=== PATIENT | female | born 1950 | race Caucasian/White ===

== ENCOUNTER 2018-09-29 14:56 | Emergency (ER) | payer MEDICAID ==
[~2018-09-29] VITALS: Ht 160 cm; Wt 68.7 kg
[~2018-09-29 14:56] MED LIST: ACET-8386 PO; ENAL10TA8 PO; LEVO250T71 PO; OMEPRAZOLE CAP 40MG
[2018-09-29 15:06] VITALS: BP 144/70
--- NOTE | 2018-09-29 15:10 | NUR ---
Patient to bed 2. RN evaluating patient at bedside.
[2018-09-29] MEDS ORDERED: ATEN25TA7 PO (15:12)
[2018-09-29] MEDS ORDERED: PHEN-1749 PO (15:13)
--- NOTE | 2018-09-29 15:20 | NUR ---
BIB FAMILY C/O PAINFUL URINATION, BLADDER PAIN, AND URINARY DRIBBLING X 2 DAYS. TAKING PHENAZOPYRIDINE WITNOUT RELIEF, LAST DOSE 1300. DENIES FEVER/CHILLS. DENIES ABDOMINAL PAIN/BACK PAIN. HX: RIGHT KIDNEY REMOVAL SURGERY 05/26/18, HIGH CHOLESTEROL, HTN RX: PHENAZOPYRIDINE, ATENOLOL, OMEPRAZOLE, ENALAPRIL PATIENT STATES PAIN OF 8/10 AT THIS TIME; PATIENT POSITIONED FOR COMFORT; HOB ELEVATED; BEDRAILS UP X1; BED DOWN. ER MD MADE AWARE OF PT STATUS.
[2018-09-29] MEDS ORDERED: cefTRIAXone 1,000 MG in LIDOCAINE MPF 1% - 5 mL VIAL 2.1 ML IM ONE (15:45)
[2018-09-29 15:48] LABS: APPEARANCE,URINE HAZY (CLEAR); BILIRUBIN,URINE NEGATIVE (NEGATIVE); BLOOD, URINE 1+ (NEGATIVE); COLOR,URINE ORANGE (YELLOW); LEUKOCYTE ESTERASE ,URINE 3+ (NEGATIVE); NITRITE, URINE POSITIVE (NEGATIVE); PH,URINE 5.5 (5.0-9.0); UGLUCOSE TRACE (NEGATIVE)
[2018-09-29 16:03] VITALS: BP 132/71
[2018-09-29 16:23] LABS: WBC,URINE >25 (MANY) /HPF (0-5)
== END 2018-09-29 16:02 | disposition home or self-care (01) ==
LOC: MED 14:56
DX: N39.0 Urinary tract infection, site not specified (principal); I10 Essential (primary) hypertension; Z85.41 Personal history of malignant neoplasm of cervix uteri; Z98.890 Other specified postprocedural states; Z79.899 Other long term (current) drug therapy
CPT/HCPCS: 81001; 87086; 87186; 96372; 99283; J0696; J2001

== ENCOUNTER 2018-10-09 16:23 | Emergency (ER) | payer MEDICARE, MEDICAID ==
[~2018-10-09] VITALS: Ht 160 cm; Wt 68.0 kg
[~2018-10-09 16:23] MED LIST changes: -ACET-8386 PO; +ATEN25TA7 PO; -LEVO250T71 PO; +PHEN-1749 PO
[2018-10-09 16:32] VITALS: BP 167/88
--- NOTE | 2018-10-09 16:36 | NUR ---
PT WHEELCHAIRED TO LOBBY. VSS. AA0X4
[2018-10-09 22:42] LABS: APPEARANCE,URINE CLEAR (CLEAR); BILIRUBIN,URINE NEGATIVE (NEGATIVE); BLOOD, URINE NEGATIVE (NEGATIVE); COLOR,URINE YELLOW (YELLOW); LEUKOCYTE ESTERASE ,URINE NEGATIVE (NEGATIVE); NITRITE, URINE NEGATIVE (NEGATIVE); UGLUCOSE NEGATIVE (NEGATIVE)
--- NOTE | 2018-10-09 22:49 | NUR ---
PT WHEEL CHAIR ASSISTED TO BED 7.
--- NOTE | 2018-10-09 22:50 | NUR ---
67 Y FEMALE, BIB TO ED C/O LEFT LOWER BACK PAIN RADIATING TO L LOWER LEG X5 DAYS PAIN 10 AT THIS TIME. PT UNABLE TO BEAR WEIGHT ON LEFT FOOT DUE TO PAIN, ASSISTED TO BED VIA WHEELCHAIR, PT SEEN LAST FRIDAY FOR UTI AND WAS GIVEN CEPHALEXIN. PT AAOX4, GCS 15, RR EVEN UNLABORED, ED MD DR. FERREIRA MADE AWARE, WILL CONTINUE TO MONITOR CLOSELY. PMH- HTN
[2018-10-09] MEDS ORDERED: oxyCODONE/APAP 5/325 MG 1 TAB TAB PO ONE (23:30)
[2018-10-10 00:19] LABS: BASOPHILS % (AUTO) 0.3 % (0.0-2.0); EOSINOPHILS # (AUTO) 0.1 K/uL (0-0.4); EOSINOPHILS % (AUTO) 0.8 % (0.0-4.0); HEMATOCRIT 36.2 % (36-48); LYMPHOCYTES # (AUTO) 2.5 K/uL (2.5-16.5); LYMPHOCYTES % (AUTO) 35.4 % (20.5-51.1); MEAN CORPUSCULAR HEMOGLOBIN 30 pg (27-31); MEAN CORPUSCULAR HGB CONC 33 g/dL (33-37); MEAN CORPUSCULAR VOLUME 89.8 fL (80-94); MONOCYTES # (AUTO) 0.4 K/uL (0.8-1.0); MONOCYTES % (AUTO) 5.8 % (1.7-9.3); NEUTROPHILS # (AUTO) 4.1 K/uL (1.8-7.7); NEUTROPHILS % (AUTO) 57.7 % (42.2-75.2); PLATELET COUNT (AUTO) 228 K/uL (140-450); RED BLOOD CELL COUNT(AUTO) 4.03 MIL/uL (4.20-5.40); RED CELL DISTRIBUTION WIDTH 16.2 % (11.6-13.7); WHITE BLOOD COUNT (AUTO) 7.2 K/uL (4.8-10.8)
[2018-10-10 00:49] LABS: ALBUMIN 4.1 g/dL (3.4-5.0); ANION GAP 13.7 (8-16); CARBON DIOXIDE 25.3 mmol/L (21-32); CREATININE 1.5 mg/dL (0.6-1.3); TOTAL BILIRUBIN 0.5 mg/dL (0.0-1.0)
[2018-10-10 01:26] VITALS: BP 154/78
--- NOTE | 2018-10-10 01:26 | NUR ---
Patient discharged with v/s stable. Written and verbal after care instructions given and explained. Patient alert, oriented and verbalized understanding of instructions. Wheel Chair Assisted with to car. All questions addressed prior to discharge. ID band removed. Patient advised to follow up with PMD. Rx of PERCOCET 5MG/325MG AND ZOFRAN ODT 4MG given. Patient educated on indication of medication including possible reaction and side effects. Opportunity to ask questions provided and answered.
== END 2018-10-10 01:26 | disposition home or self-care (01) ==
LOC: MED 16:23
DX: M54.5 Low back pain (principal); I10 Essential (primary) hypertension; Z90.49 Acquired absence of other specified parts of digestive tract; Z79.899 Other long term (current) drug therapy; Z85.41 Personal history of malignant neoplasm of cervix uteri
CPT/HCPCS: 36415; 80053; 81003; 85025; 99284

== ENCOUNTER 2018-10-12 16:05 | Emergency (ER) | payer MEDICARE, MEDICAID ==
[~2018-10-12] VITALS: Ht 160 cm; Wt 68.0 kg
--- NOTE | 2018-10-12 16:09 | NUR ---
Patient transferred to bed 2 via wheelchair by tech. RN evaluating patient at bedside.
[2018-10-12 16:15] VITALS: BP 162/95
[2018-10-12] MEDS ORDERED: CEPH250C16 PO (16:18)
[2018-10-12] MEDS ORDERED: [UNRECOGNIZED DRUG - CODE] PO (16:18)
[2018-10-12] MEDS ORDERED: OMEP20TC10 PO (16:18)
--- NOTE | 2018-10-12 16:20 | NUR ---
BIB BOYFRIEND. AAO X4 C/O LEFT LEG PAIN RADIATING DOWN TO LEFT CALF, PT STATES SHE WAS SEEN TWO DAYS AGO FOR SAME PAIN AND WAS GIVEN RX OF PERCOCET AND STATES SHE TOOK HER LAST PILL PRIOR TO ARRIVAL X 1 HR AGO. PT DENIES TRAUMA/INJURY TO SITE. PT REFUSED TO BE TRANSFERRED FROM WHEEL CHAIR TO BED DUE TO PAIN. ER TO EVALUATE PT.
--- NOTE | 2018-10-12 16:23 | NUR ---
DR CHAN AT BEDSIDE FOR PT EVALUATION
[2018-10-12] MEDS ORDERED: KETOROLAC 30 MG/ML VIAL IM ONE (16:50)
[2018-10-12] MEDS ORDERED: MORPHINE SULFATE 4 MG/ML SYR IM ONE (16:50)
--- NOTE | 2018-10-12 17:15 | NUR ---
PT AAO X4. CONVERSATING APPROPRIATELY WITH SIGNIFICANT OTHER. EVEN AND UNLABORED BREATHING. PT IS SITTING ON THE WHEEL CHAIR. PT PLACED ON FULL LIGHTING DESIGNER. WILL CONTINUE TO MONITOR.
[2018-10-12 17:25] VITALS: BP 115/65
--- NOTE | 2018-10-12 17:25 | NUR ---
Patient discharged with v/s stable. Written and verbal after care instructions given and explained. Patient alert, oriented and verbalized understanding of instructions. Wheel Chair Assisted with by boyfriend. All questions addressed prior to discharge. ID band removed. Patient advised to follow up with PMD. Rx of PERCOCET 5MG-325 MG, LIDODERM 5% TRANSDERMAL PATCH, NAPROSYN given. Patient educated on indication of medication including possible reaction and side effects. Opportunity to ask questions provided and answered.
== END 2018-10-12 16:09 | disposition home or self-care (01) ==
LOC: MED 16:05
DX: M54.42 Lumbago with sciatica, left side (principal); I10 Essential (primary) hypertension; Z98.890 Other specified postprocedural states; Z79.899 Other long term (current) drug therapy
CPT/HCPCS: 96372; 99283; J1885; J2270

== ENCOUNTER 2018-10-19 20:45 | Emergency (ER) | payer MEDICARE, MEDICAID ==
[~2018-10-19] VITALS: Ht 160 cm; Wt 68.0 kg
[~2018-10-19 20:45] MED LIST changes: +CEPH250C16 PO; +OMEP20TC10 PO; -OMEPRAZOLE CAP 40MG; -PHEN-1749 PO; +[UNRECOGNIZED DRUG - CODE] PO
[2018-10-19 20:49] VITALS: BP 179/90
[2018-10-19] MEDS ORDERED: MORPHINE SULFATE 2 MG/ML SYR IM ONE (21:45)
[2018-10-19 22:10] VITALS: BP 179/90
== END 2018-10-19 22:08 | disposition home or self-care (01) ==
LOC: MED 20:45
DX: M54.40 Lumbago with sciatica, unspecified side (principal); I10 Essential (primary) hypertension; Z87.448 Personal history of other diseases of urinary system; Z85.41 Personal history of malignant neoplasm of cervix uteri; Z90.49 Acquired absence of other specified parts of digestive tract; Z79.899 Other long term (current) drug therapy; Z79.2 Long term (current) use of antibiotics; Z79.891 Long term (current) use of opiate analgesic
CPT/HCPCS: 81002; 81025; 96372; 99283; J2270

== ENCOUNTER 2018-12-10 16:03 | Inpatient (IN) | payer MEDICARE, MEDICAID ==
[~2018-12-10] VITALS: Ht 160 cm; Wt 68.5 kg
[2018-12-10 16:28] VITALS: BP 184/105
[2018-12-10] MEDS ORDERED: MORPHINE SULFATE 2 MG/ML SYR IVP ONE (16:50)
[2018-12-10] MEDS ORDERED: NACL 0.9% 1,000 ML IV ONE (16:50)
[2018-12-10] MEDS ORDERED: ONDANSETRON 4 MG/2 ML VIAL IVP ONE (16:50)
[2018-12-10] MEDS ORDERED: cefTRIAXone 1,000 MG VIAL ONE (16:57)
[2018-12-10 17:34] LABS: BASOPHILS % (AUTO) 0.2 % (0.0-2.0); EOSINOPHILS % (AUTO) 0.4 % (0.0-4.0); HEMATOCRIT 36.5 % (36-48); LYMPHOCYTES # (AUTO) 1.1 K/uL (2.5-16.5); LYMPHOCYTES % (AUTO) 9.4 % (20.5-51.1); MEAN CORPUSCULAR HEMOGLOBIN 30 pg (27-31); MEAN CORPUSCULAR HGB CONC 33 g/dL (33-37); MEAN CORPUSCULAR VOLUME 90.6 fL (80-94); MONOCYTES # (AUTO) 0.5 K/uL (0.8-1.0); MONOCYTES % (AUTO) 4.3 % (1.7-9.3); NEUTROPHILS # (AUTO) 9.9 K/uL (1.8-7.7); NEUTROPHILS % (AUTO) 85.7 % (42.2-75.2); PLATELET COUNT (AUTO) 213 K/uL (140-450); RED BLOOD CELL COUNT(AUTO) 4.03 MIL/uL (4.20-5.40); WHITE BLOOD COUNT (AUTO) 11.5 K/uL (4.8-10.8)
[2018-12-10 17:46] LABS: ANION GAP 16.9 (8-16); CARBON DIOXIDE 23.1 mmol/L (21-32); CREATININE 1.4 mg/dL (0.6-1.3)
[2018-12-10 17:47] LABS: BILIRUBIN,URINE NEGATIVE (NEGATIVE); COLOR,URINE YELLOW (YELLOW); UGLUCOSE NEGATIVE (NEGATIVE)
[2018-12-10 17:53] LABS: ALBUMIN 4.4 g/dL (3.4-5.0); TOTAL BILIRUBIN 0.6 mg/dL (0.0-1.0)
[2018-12-10 18:18] LABS: APPEARANCE,URINE SL CLOUDY (CLEAR); BLOOD, URINE 1+ (NEGATIVE); LEUKOCYTE ESTERASE ,URINE 2+ (NEGATIVE); NITRITE, URINE POSITIVE (NEGATIVE)
[2018-12-10 18:23] LABS: RBC,URINE 20-50 /HPF (0-5); WBC,URINE TOO MANY TO COUNT /HPF (0-5)
[2018-12-10] MEDS ORDERED: ACETAMINOPHEN 325 MG TAB PO ONE (18:40)
[2018-12-10] MEDS ORDERED: ONDANSETRON 4 MG/2 ML VIAL IM/IVP PRN (21:20)
[2018-12-10] MEDS ORDERED: HYDROcodone/APAP 7.5/325 MG 1 TAB PO PRN (21:20)
[2018-12-10] MEDS ORDERED: ATEN25TA7 PO ×2 (21:33→21:35)
[2018-12-10] MEDS ORDERED: OMEP20TC11 PO (21:35)
[2018-12-10 21:49] LABS: BARBITURATE, URINE NEG. ng/ml (NEG <=200); BENZODIAZEPINE, URINE NEG. ng/mL (NEG <=200); CANNABINOID, URINE NEG. ng/mL (NEG <=50); COCAINE, URINE NEG. ng/mL (NEG <=300); OPIATE, URINE NEG. ng/mL (NEG <=2000); PHENCYCLIDINE SCREEN,URINE NEG. ng/mL (NEG <=25)
[2018-12-10 21:50] LABS: CHOL/HDL RATIO 4.9 (1-4.5); FREE T4 (FREE THYROXINE) 0.93 ng/dL (0.76-1.46); MAGNESIUM 1.7 mg/dL (1.8-2.4); PHOSPHORUS 1.9 mg/dL (2.5-4.9); THYROID STIMULATING HORMONE 1.74 uIU/mL (0.34-3.74)
[2018-12-10 22:00] VITALS: BP 130/53
[2018-12-10] MEDS: NACL 0.9% 1,000 ML IV SCH (22:00)
[2018-12-10] MEDS: MORPHINE SULFATE 2 MG/ML SYR IVP PRN (22:49)
[2018-12-10] MEDS: ATENOLOL 25 MG TAB PO SCH (23:22)
[2018-12-10] MEDS: ENALAPRIL 5 MG TAB PO SCH (23:25)
[2018-12-11] VITALS (11 sets, daily range): BP systolic 115–173; BP diastolic 59–96
[2018-12-11] MEDS: ACETAMINOPHEN 325 MG TAB PO PRN ×2 (04:14→22:50)
[2018-12-11 06:51] LABS: BASOPHILS % (AUTO) 0.2 % (0.0-2.0); EOSINOPHILS # (AUTO) 0.1 K/uL (0-0.4); EOSINOPHILS % (AUTO) 0.4 % (0.0-4.0); HEMATOCRIT 33.2 % (36-48); HEMOGLOBIN 10.9 g/dL (12.0-16.0); LYMPHOCYTES # (AUTO) 1.5 K/uL (2.5-16.5); LYMPHOCYTES % (AUTO) 10.7 % (20.5-51.1); MEAN CORPUSCULAR HEMOGLOBIN 30 pg (27-31); MEAN CORPUSCULAR HGB CONC 33 g/dL (33-37); MEAN CORPUSCULAR VOLUME 90.3 fL (80-94); MONOCYTES # (AUTO) 0.9 K/uL (0.8-1.0); NEUTROPHILS # (AUTO) 11.9 K/uL (1.8-7.7); NEUTROPHILS % (AUTO) 82.7 % (42.2-75.2); PLATELET COUNT (AUTO) 211 K/uL (140-450); RED BLOOD CELL COUNT(AUTO) 3.68 MIL/uL (4.20-5.40); RED CELL DISTRIBUTION WIDTH 16.2 % (11.6-13.7); WHITE BLOOD COUNT (AUTO) 14.3 K/uL (4.8-10.8)
[2018-12-11 07:02] LABS: ANION GAP 15.1 (8-16); CARBON DIOXIDE 22.7 mmol/L (21-32); CREATININE 1.3 mg/dL (0.6-1.3); POTASSIUM 3.8 mmol/L (3.5-5.1)
[2018-12-11] MEDS: PANTOPRAZOLE 40 MG TABEC PO SCH (08:28)
[2018-12-11] MEDS: ATENOLOL 25 MG TAB PO SCH (08:28)
[2018-12-11] MEDS: ENALAPRIL 5 MG TAB PO SCH (08:29)
[2018-12-11] MEDS: LACTOBACILLUS RHAMNOSUS GG 1 EACH CAP PO SCH (08:29)
[2018-12-11] MEDS: cefTRIAXone 2,000 MG in DEXTROSE 5% 100 ML IV SCH ×2 (08:29→08:31)
[2018-12-11] MEDS ORDERED: MAGNESIUM OXIDE 400 MG TAB PO SCH (11:12)
[2018-12-11] MEDS: NACL 0.9% 1,000 ML IV SCH ×2 (11:41→15:16)
[2018-12-11] MEDS: MORPHINE SULFATE 2 MG/ML SYR IVP PRN (12:17)
[2018-12-11] MEDS ORDERED: ENALAPRIL 10 MG TAB PO SCH (13:00)
[2018-12-11] MEDS: hydrALAZINE 20 MG/ML VIAL IVP PRN (13:07)
[2018-12-11] MEDS: SODIUM PHOS / POTASSIUM PHOS 1 PKT PDR PO SCH (20:43)
[2018-12-11] MEDS: ATORVASTATIN 20 MG TAB PO SCH (20:45)
[2018-12-12] VITALS: BP 116/66
[2018-12-12 04:00] VITALS: BP 102/52
[2018-12-12 08:00] VITALS: BP 100/58
[2018-12-12 08:42] LABS: HEMOGLOBIN 11.3 g/dL (12.0-16.0)
[2018-12-12] MEDS: ATENOLOL 25 MG TAB PO SCH (09:00)
[2018-12-12] MEDS ORDERED: ENALAPRIL 10 MG TAB PO SCH ×2 (09:00)
[2018-12-12 09:05] LABS: HEMATOCRIT 34.6 % (36-48); MEAN CORPUSCULAR HEMOGLOBIN 30 pg (27-31); MEAN CORPUSCULAR HGB CONC 33 g/dL (33-37); MEAN CORPUSCULAR VOLUME 90.6 fL (80-94); PLATELET COUNT (AUTO) 197 K/uL (140-450); RED BLOOD CELL COUNT(AUTO) 3.82 MIL/uL (4.20-5.40); RED CELL DISTRIBUTION WIDTH 16.3 % (11.6-13.7); WHITE BLOOD COUNT (AUTO) 10.9 K/uL (4.8-10.8)
[2018-12-12] MEDS: SODIUM PHOS / POTASSIUM PHOS 1 PKT PDR PO SCH ×2 (09:23→20:11)
[2018-12-12] MEDS: LACTOBACILLUS RHAMNOSUS GG 1 EACH CAP PO SCH (09:23)
[2018-12-12] MEDS: PANTOPRAZOLE 40 MG TABEC PO SCH (09:27)
[2018-12-12 09:29] LABS: BASOPHILS % (MANUAL) 0 % (0-2); EOSINOPHILS % (MANUAL) 1 % (0-4); LYMPHOCYTES % (MANUAL) 17 % (20-46); MONOCYTES % (MANUAL) 5 % (5-12)
[2018-12-12 11:53] LABS: MAGNESIUM 1.8 mg/dL (1.8-2.4); PHOSPHORUS 2.8 mg/dL (2.5-4.9)
[2018-12-12 12:00] VITALS: BP 142/82
[2018-12-12] MEDS ORDERED: APAP/BUTAL/CAFF 325/50/40 MG 1 TAB PO PRN (12:50)
[2018-12-12 13:36] LABS: ANION GAP 19.2 (8-16); CARBON DIOXIDE 20.3 mmol/L (21-32); CREATININE 1.5 mg/dL (0.6-1.3); POTASSIUM 3.5 mmol/L (3.5-5.1)
[2018-12-12 16:00] VITALS: BP 153/90
[2018-12-12] MEDS: MORPHINE SULFATE 2 MG/ML SYR IVP PRN ×2 (16:27→21:40)
[2018-12-12] MEDS: NACL 0.9% 1,000 ML IV SCH (17:00)
[2018-12-12 20:00] VITALS: BP 152/88
[2018-12-12] MEDS: ATORVASTATIN 20 MG TAB PO SCH (20:12)
[2018-12-12] MEDS: GABAPENTIN 300 MG CAP PO SCH (20:12)
[2018-12-13] VITALS: BP 127/72
[2018-12-13 04:00] VITALS: BP 118/72
[2018-12-13] MEDS: NACL 0.9% 1,000 ML IV SCH ×2 (05:44→20:44)
[2018-12-13 06:55] LABS: BASOPHILS % (AUTO) 0.3 % (0.0-2.0); EOSINOPHILS # (AUTO) 0.1 K/uL (0-0.4); EOSINOPHILS % (AUTO) 1.1 % (0.0-4.0); HEMATOCRIT 30.4 % (36-48); HEMOGLOBIN 10.1 g/dL (12.0-16.0); LYMPHOCYTES # (AUTO) 1.3 K/uL (2.5-16.5); LYMPHOCYTES % (AUTO) 17.3 % (20.5-51.1); MEAN CORPUSCULAR HEMOGLOBIN 30 pg (27-31); MEAN CORPUSCULAR HGB CONC 33 g/dL (33-37); MEAN CORPUSCULAR VOLUME 90.3 fL (80-94); MONOCYTES # (AUTO) 0.6 K/uL (0.8-1.0); MONOCYTES % (AUTO) 7.7 % (1.7-9.3); NEUTROPHILS # (AUTO) 5.6 K/uL (1.8-7.7); NEUTROPHILS % (AUTO) 73.6 % (42.2-75.2); PLATELET COUNT (AUTO) 211 K/uL (140-450); RED BLOOD CELL COUNT(AUTO) 3.36 MIL/uL (4.20-5.40); RED CELL DISTRIBUTION WIDTH 16.1 % (11.6-13.7); WHITE BLOOD COUNT (AUTO) 7.6 K/uL (4.8-10.8)
[2018-12-13 07:40] LABS: MAGNESIUM 1.9 mg/dL (1.8-2.4); PHOSPHORUS 2.7 mg/dL (2.5-4.9)
[2018-12-13 08:00] VITALS: BP 115/75
[2018-12-13 08:13] LABS: ANION GAP 14.1 (8-16); CARBON DIOXIDE 23.6 mmol/L (21-32); CREATININE 1.3 mg/dL (0.6-1.3); POTASSIUM 3.7 mmol/L (3.5-5.1)
[2018-12-13] MEDS: SODIUM PHOS / POTASSIUM PHOS 1 PKT PDR PO SCH ×2 (09:35→20:47)
[2018-12-13] MEDS: LACTOBACILLUS RHAMNOSUS GG 1 EACH CAP PO SCH (09:36)
[2018-12-13] MEDS: ENALAPRIL 10 MG TAB PO SCH (09:36)
[2018-12-13] MEDS: GABAPENTIN 300 MG CAP PO SCH ×2 (09:37→20:47)
[2018-12-13] MEDS: ATENOLOL 25 MG TAB PO SCH (09:37)
[2018-12-13] MEDS: PANTOPRAZOLE 40 MG TABEC PO SCH (09:38)
[2018-12-13 12:00] VITALS: BP 114/70
[2018-12-13 16:00] VITALS: BP 129/71
[2018-12-13 20:00] VITALS: BP 145/81
[2018-12-13] MEDS: ATORVASTATIN 20 MG TAB PO SCH (20:47)
[2018-12-13] MEDS: MORPHINE SULFATE 2 MG/ML SYR IVP PRN (21:56)
[2018-12-14] VITALS: BP 152/73
[2018-12-14 04:00] VITALS: BP 144/80
[2018-12-14 07:54] VITALS: BP 155/84
[2018-12-14] MEDS: LACTOBACILLUS RHAMNOSUS GG 1 EACH CAP PO SCH (08:35)
[2018-12-14] MEDS: SODIUM PHOS / POTASSIUM PHOS 1 PKT PDR PO SCH (08:35)
[2018-12-14] MEDS: PANTOPRAZOLE 40 MG TABEC PO SCH (08:35)
[2018-12-14] MEDS: GABAPENTIN 300 MG CAP PO SCH (08:35)
[2018-12-14] MEDS: ATENOLOL 25 MG TAB PO SCH (08:36)
[2018-12-14] MEDS: ENALAPRIL 10 MG TAB PO SCH (08:36)
[2018-12-14] MEDS ORDERED: ENAL-197 PO (09:27)
[2018-12-14] MEDS ORDERED: INUL1CTB PO ×2 (09:53→10:05)
[2018-12-14] MEDS ORDERED: AMLO10TA PO ×2 (09:53→10:05)
[2018-12-14] MEDS ORDERED: LEVO750T2 PO (09:53)
[2018-12-14] MEDS ORDERED: LEVO750T51 PO (10:05)
[2018-12-14 12:00] VITALS: BP 177/90
[2018-12-14] MEDS: hydrALAZINE 20 MG/ML VIAL IVP PRN (12:20)
[2018-12-14 14:20] VITALS: BP 167/87
[2018-12-14] MEDS ORDERED: ENALAPRIL 10 MG TAB PO SCH (15:00)
[2018-12-14 16:00] VITALS: BP 161/80
[2018-12-14] MEDS: ACETAMINOPHEN 325 MG TAB PO PRN (17:23)
[2018-12-15] MEDS ORDERED: amLODIPine 5 MG TAB PO SCH (09:00)
== END 2018-12-14 18:50 | disposition home health service (06) | DRG 720 ==
LOC: MED 16:03 → MTU 21:17
PROVIDERS: ADMIT General Practice; ATTEND General Practice
DX: A41.9 Sepsis, unspecified organism (principal); N17.0 Acute kidney failure with tubular necrosis; K21.9 Gastro-esophageal reflux disease without esophagitis; E78.5 Hyperlipidemia, unspecified; N13.6 Pyonephrosis; E83.42 Hypomagnesemia; E83.39 Other disorders of phosphorus metabolism; N18.3 Chronic kidney disease, stage 3 (moderate); I12.9 Hypertensive chronic kidney disease with stage 1 through stage 4 chronic kidney disease, or unspecified chronic kidney disease; R33.9 Retention of urine, unspecified; Z85.41 Personal history of malignant neoplasm of cervix uteri; Z90.5 Acquired absence of kidney; Z85.89 Personal history of malignant neoplasm of other organs and systems; Z90.49 Acquired absence of other specified parts of digestive tract
CPT/HCPCS: 36415; 71045; 76770; 80048; 80053; 80305; 81001; 81003; 82550; 83036; 83605; 83690; 83735; 83880; 84100; 84439; 84443; 85025; 85610; 85730; 87040; 87081; 87086; 87186; 96365; 96375; 97110; 97116; 97530; 99285; J0360; J0696; J1644; J2270; J2405; J7030; J7060; Q0092

== ENCOUNTER 2019-01-20 16:14 | Emergency (ER) | payer MEDICARE, MEDICAID ==
[~2019-01-20] VITALS: Ht 160 cm; Wt 71.3 kg
[~2019-01-20 16:14] MED LIST changes: +AMLO10TA PO; -CEPH250C16 PO; +ENAL-197 PO; -ENAL10TA8 PO; +INUL1CTB PO; +LEVO750T51 PO; -OMEP20TC10 PO; +OMEP20TC11 PO; -[UNRECOGNIZED DRUG - CODE] PO
[2019-01-20 16:26] VITALS: BP 148/70
--- NOTE | 2019-01-20 17:09 | NUR ---
BIB W/ C/O BLOODY URINARY CATH X 3 DAYS. WAS DISCHARGE HOME WITH URINARY CATHETER ON 12/14 FOR UTI. HX: HTN. PATIENT STATES PAIN OF 0/10 AT THIS TIME. PATIENT POSITIONED FOR COMFORT; HOB ELEVATED; BEDRAILS UP X1; BED DOWN. ER MD MADE AWARE OF PT STATUS.
--- NOTE | 2019-01-20 17:10 | NUR ---
PT AMBULATED TO BED 10
--- NOTE | 2019-01-20 17:27 | NUR ---
Patient being evaluated by DR KEYS at bedside.
--- NOTE | 2019-01-20 17:40 | NUR ---
REMOVED GUADALUPE CATH PER ORDER.
--- NOTE | 2019-01-20 17:52 | NUR ---
LAB AT BEDSIDE.
[2019-01-20 18:03] LABS: BASOPHILS % (AUTO) 0.4 % (0.0-2.0); EOSINOPHILS # (AUTO) 0.1 K/uL (0-0.4); EOSINOPHILS % (AUTO) 0.9 % (0.0-4.0); HEMATOCRIT 32.5 % (36-48); HEMOGLOBIN 10.7 g/dL (12.0-16.0); LYMPHOCYTES % (AUTO) 29.9 % (20.5-51.1); MEAN CORPUSCULAR HEMOGLOBIN 30 pg (27-31); MEAN CORPUSCULAR HGB CONC 33 g/dL (33-37); MEAN CORPUSCULAR VOLUME 91.3 fL (80-94); MONOCYTES # (AUTO) 0.4 K/uL (0.8-1.0); MONOCYTES % (AUTO) 6.5 % (1.7-9.3); NEUTROPHILS # (AUTO) 4.1 K/uL (1.8-7.7); NEUTROPHILS % (AUTO) 62.3 % (42.2-75.2); PLATELET COUNT (AUTO) 231 K/uL (140-450); RED BLOOD CELL COUNT(AUTO) 3.56 MIL/uL (4.20-5.40); RED CELL DISTRIBUTION WIDTH 16.5 % (11.6-13.7); WHITE BLOOD COUNT (AUTO) 6.6 K/uL (4.8-10.8)
[2019-01-20 18:12] LABS: APPEARANCE,URINE CLEAR (CLEAR); BILIRUBIN,URINE NEGATIVE (NEGATIVE); BLOOD, URINE 3+ (NEGATIVE); COLOR,URINE YELLOW (YELLOW); LEUKOCYTE ESTERASE ,URINE 1+ (NEGATIVE); NITRITE, URINE NEGATIVE (NEGATIVE); PH,URINE >=9.0 (5.0-9.0); UGLUCOSE NEGATIVE (NEGATIVE)
--- NOTE | 2019-01-20 18:24 | NUR ---
PT URENATED X3 TIMES
[2019-01-20 18:30] LABS: ANION GAP 17.7 (8-16); CARBON DIOXIDE 20.6 mmol/L (21-32); CREATININE 1.7 mg/dL (0.6-1.3); POTASSIUM 4.3 mmol/L (3.5-5.1)
[2019-01-20 18:33] LABS: RBC,URINE 20-50 /HPF (0-5)
[2019-01-20 18:34] LABS: HYALINE CASTS, URINE 0-10 /LPF (None Seen)
[2019-01-20 18:36] LABS: ALBUMIN 4.1 g/dL (3.4-5.0); TOTAL BILIRUBIN 0.3 mg/dL (0.0-1.0)
--- NOTE | 2019-01-20 18:42 | NUR ---
URENATED AT THIS TIME. URINE CLEAR.
--- NOTE | 2019-01-20 19:02 | NUR ---
Pt report given to DREW GARCIA. Transfer of care at this time.
--- NOTE | 2019-01-20 19:06 | NUR ---
RECEIVED REPORT FROM JOSE BARKER. TRANSFER OF CARE AT THIS TIME.
--- NOTE | 2019-01-20 19:17 | NUR ---
PT AMBUALTED TO RESTROOM WITH STEADY GAIT.
[2019-01-20 19:23] VITALS: BP 133/72
== END 2019-01-20 19:24 | disposition home or self-care (01) ==
LOC: MED 16:14
DX: I13.10 Hypertensive heart and chronic kidney disease without heart failure, with stage 1 through stage 4 chronic kidney disease, or unspecified chronic kidney disease (principal); N18.9 Chronic kidney disease, unspecified; N39.0 Urinary tract infection, site not specified; Q60.0 Renal agenesis, unilateral; Z79.899 Other long term (current) drug therapy; Z85.89 Personal history of malignant neoplasm of other organs and systems
CPT/HCPCS: 36415; 80053; 81001; 85025; 87086; 99283

== ENCOUNTER 2019-08-09 12:36 | Emergency (ER) | payer MEDICARE, MEDICAID ==
[~2019-08-09] VITALS: Ht 160 cm; Wt 68.0 kg
[2019-08-09 13:27] VITALS: BP 176/96
--- NOTE | 2019-08-09 13:31 | NUR ---
Patient transferred to bed 6 via wheelchair by tech. RN evaluating patient at bedside.
--- NOTE | 2019-08-09 13:32 | NUR ---
urine cup handed to pt for sample
--- NOTE | 2019-08-09 13:44 | NUR ---
Dr. Chu is evaluating the patient at bedside.
[2019-08-09] MEDS ORDERED: ONDANSETRON 4 MG/2 ML VIAL IVP ONE (13:50)
[2019-08-09] MEDS ORDERED: MORPHINE SULFATE 4 MG/ML SYR IVP ONE (13:50)
[2019-08-09] MEDS ORDERED: ALUMINUM HYD/MAG/SIMETHICONE 30 ML, DICYCLOMINE HCL LIQUID 20 MG, LIDOCAINE VISCOUS 2% ... PO ONE ×3 (13:55)
[2019-08-09] MEDS ORDERED: DICYCLOMINE HCL LIQUID 10 MG/5 ML UDC ONE (14:16)
[2019-08-09] MEDS ORDERED: ALUMINUM HYD/MAG/SIMETHICONE 30 ML UDC ONE (14:16)
[2019-08-09] MEDS ORDERED: LIDOCAINE VISCOUS 2% 20 ML UDC ONE (14:16)
--- NOTE | 2019-08-09 14:25 | NUR ---
PT TO CT SCAN
--- NOTE | 2019-08-09 14:32 | NUR ---
Patient returned from CT scan. RN re-evaluating patient at bedside.
--- NOTE | 2019-08-09 14:53 | NUR ---
MORPHINE, ZOFRAN, AND GI COCKTAIL ADMINISTERED
--- NOTE | 2019-08-09 15:11 | NUR ---
c/o suprapubic pain 8/10 radiating to lower back with burning pain upon voiding x yesterday. pt adds frequent utis. bowel sounds active. abdomen soft and round, tenderness to suprapubic region. pt alert and awake. vs stable. ambulatory with steady gait. hx--one kidney, htn
[2019-08-09 15:30] LABS: BASOPHILS % (AUTO) 0.3 % (0.0-2.0); HEMATOCRIT 33.9 % (36-48); HEMOGLOBIN 11.4 g/dL (12.0-16.0); LYMPHOCYTES # (AUTO) 0.6 K/uL (2.5-16.5); LYMPHOCYTES % (AUTO) 5.7 % (20.5-51.1); MEAN CORPUSCULAR HEMOGLOBIN 30 pg (27-31); MEAN CORPUSCULAR HGB CONC 34 g/dL (33-37); MEAN CORPUSCULAR VOLUME 88.7 fL (80-94); MONOCYTES # (AUTO) 0.4 K/uL (0.8-1.0); MONOCYTES % (AUTO) 3.1 % (1.7-9.3); NEUTROPHILS # (AUTO) 10.3 K/uL (1.8-7.7); NEUTROPHILS % (AUTO) 90.9 % (42.2-75.2); PLATELET COUNT (AUTO) 170 K/uL (140-450); RED BLOOD CELL COUNT(AUTO) 3.83 MIL/uL (4.20-5.40); RED CELL DISTRIBUTION WIDTH 15.5 % (11.6-13.7); WHITE BLOOD COUNT (AUTO) 11.3 K/uL (4.8-10.8)
[2019-08-09 15:53] LABS: ALBUMIN 3.6 g/dL (3.4-5.0); ANION GAP 15.6 (8-16); CARBON DIOXIDE 21.8 mmol/L (21-32); CREATININE 1.6 mg/dL (0.6-1.3); POTASSIUM 3.4 mmol/L (3.5-5.1); TOTAL BILIRUBIN 0.8 mg/dL (0.0-1.0)
[2019-08-09 15:56] LABS: APPEARANCE,URINE CLEAR (CLEAR); BILIRUBIN,URINE NEGATIVE (NEGATIVE); BLOOD, URINE 1+ (NEGATIVE); COLOR,URINE YELLOW (YELLOW); LEUKOCYTE ESTERASE ,URINE NEGATIVE (NEGATIVE); NITRITE, URINE POSITIVE (NEGATIVE); PH,URINE 5.5 (5.0-9.0); UGLUCOSE NEGATIVE (NEGATIVE)
[2019-08-09] MEDS ORDERED: cefTRIAXone 1,000 MG VIAL ONE (16:25)
[2019-08-09 16:28] LABS: RBC,URINE 0-5 /HPF (0-5); WBC,URINE 0-5 /HPF (0-5)
--- NOTE | 2019-08-09 16:39 | NUR ---
rocephin ivpb started
--- NOTE | 2019-08-09 16:55 | NUR ---
tonir, pain 03/29. pt states "i feel much better now"
[2019-08-09 17:20] VITALS: BP 114/54
--- NOTE | 2019-08-09 17:20 | NUR ---
Patient discharged with v/s stable. Written and verbal after care instructions given and explained. Patient alert, oriented and verbalized understanding of instructions. Ambulatory with steady gait. All questions addressed prior to discharge. ID band removed. Patient advised to follow up with PMD. Rx of kelfex, zofran, pepcid given. Patient educated on indication of medication including possible reaction and side effects. Opportunity to ask questions provided and answered. instructed to alternate between tylenol and otc mylanta prn pain
== END 2019-08-09 17:20 | disposition home or self-care (01) ==
LOC: MED 12:36
DX: N39.0 Urinary tract infection, site not specified (principal); I10 Essential (primary) hypertension; E78.5 Hyperlipidemia, unspecified; Z85.41 Personal history of malignant neoplasm of cervix uteri; Z79.899 Other long term (current) drug therapy
CPT/HCPCS: 36415; 74176; 80053; 81001; 82150; 83690; 84484; 85025; 87086; 93005; 96365; 96375; 99285; J0696; J2270; J2405

== ENCOUNTER 2019-12-15 11:06 | Emergency (ER) | payer MEDICARE, MEDICAID ==
[~2019-12-15] VITALS: Ht 162.6 cm; Wt 68.9 kg
[2019-12-15 11:09] VITALS: BP 153/79
[2019-12-15] MEDS: cephALEXin 500 MG CAP PO ONE (11:45)
[2019-12-15 12:04] LABS: BASOPHILS % (AUTO) 0.2 % (0.0-2.0); EOSINOPHILS # (AUTO) 0.1 K/uL (0-0.4); EOSINOPHILS % (AUTO) 1.3 % (0.0-4.0); HEMATOCRIT 35.4 % (36-48); HEMOGLOBIN 11.8 g/dL (12.0-16.0); MEAN CORPUSCULAR HEMOGLOBIN 29 pg (27-31); MEAN CORPUSCULAR HGB CONC 34 g/dL (33-37); MEAN CORPUSCULAR VOLUME 86.2 fL (80-94); MONOCYTES # (AUTO) 0.3 K/uL (0.8-1.0); NEUTROPHILS # (AUTO) 3.3 K/uL (1.8-7.7); NEUTROPHILS % (AUTO) 70.5 % (42.2-75.2); PLATELET COUNT (AUTO) 184 K/uL (140-450); RED CELL DISTRIBUTION WIDTH 16.5 % (11.6-13.7); WHITE BLOOD COUNT (AUTO) 4.7 K/uL (4.8-10.8)
[2019-12-15 12:04] LABS: APPEARANCE,URINE HAZY (CLEAR); BILIRUBIN,URINE 1+ (NEGATIVE); BLOOD, URINE 1+ (NEGATIVE); COLOR,URINE YELLOW (YELLOW); NITRITE, URINE POSITIVE (NEGATIVE); UGLUCOSE NEGATIVE (NEGATIVE)
[2019-12-15 12:10] LABS: ANION GAP 15.7 (8-16); CARBON DIOXIDE 21.3 mmol/L (21-32); CREATININE 1.4 mg/dL (0.6-1.3)
[2019-12-15 12:40] LABS: LEUKOCYTE ESTERASE ,URINE 2+ (NEGATIVE)
[2019-12-15 12:42] LABS: WBC,URINE 60-80 /HPF (0-5)
[2019-12-15 13:26] VITALS: BP 144/75
== END 2019-12-15 13:26 | disposition home or self-care (01) ==
LOC: MED 11:06
DX: U07.1 COVID-19 (principal); J18.9 Pneumonia, unspecified organism; N39.0 Urinary tract infection, site not specified; I10 Essential (primary) hypertension; N28.9 Disorder of kidney and ureter, unspecified; Z85.9 Personal history of malignant neoplasm, unspecified; Z90.5 Acquired absence of kidney; Z79.899 Other long term (current) drug therapy
CPT/HCPCS: 71045; 80048; 81001; 85025; 87086; 99284; Q0092; U0003

== ENCOUNTER 2020-03-24 16:54 | Inpatient (IN) | payer MEDICAID, MEDICARE, SELFPAY ==
[~2020-03-24] VITALS: Ht 157.5 cm; Wt 60.8 kg
--- NOTE | 2020-03-24 17:12 | NUR ---
BP 175/97, HR 122. ERMD AWARE
[2020-03-24 17:13] VITALS: BP 175/97
--- NOTE | 2020-03-24 17:23 | NUR ---
69 YEAR OLD FEMALE COMPLAINS OF CHILLS AND HEADACHES X YESTERDAY. PATIENT VERBALIZED INTERMITTENT SOB AT REST, BREATHING EVEN BUT SOMEWHAT LABORED, SPO2 96% ROOM AIR. DENIES CHEST PAIN. DENIES NAUSEA/VOMITING/DIARRHEA. APPLIED ADDITIONAL BLANKETS THROUGHOUT THE NIGHT TO ADDRESS CHILLS, NO RELIEF. TEMP 101.2. AO4, SKIN WARM AND DRY. BED IN LOWEST POSITION, LOCKED, X1 SIDERAIL UP. PMH - CERVICAL CANCER, RIGHT KIDNEY REMOVAL, BOTULISM, UTI NKA
[2020-03-24] MEDS ORDERED: NACL 0.9% 1,000 ML IV SCH ×2 (17:50→20:30)
[2020-03-24 18:15] LABS: APPEARANCE,URINE HAZY (CLEAR); BILIRUBIN,URINE NEGATIVE (NEGATIVE); BLOOD, URINE TRACE-I (NEGATIVE); COLOR,URINE YELLOW (YELLOW); LEUKOCYTE ESTERASE ,URINE 1+ (NEGATIVE); NITRITE, URINE POSITIVE (NEGATIVE); UGLUCOSE NEGATIVE (NEGATIVE)
[2020-03-24 18:17] LABS: BASOPHILS # (AUTO) 0.1 K/uL (0.00-0.22); BASOPHILS % (AUTO) 0.4 % (0.0-2.0); EOSINOPHILS % (AUTO) 0.4 % (0.0-4.0); HEMATOCRIT 36.6 % (36-48); HEMOGLOBIN 12.4 g/dL (12.0-16.0); LYMPHOCYTES % (AUTO) 8.4 % (20.5-51.1); MEAN CORPUSCULAR HEMOGLOBIN 30 pg (27-31); MEAN CORPUSCULAR HGB CONC 34 g/dL (33-37); MEAN CORPUSCULAR VOLUME 88.1 fL (80-94); MONOCYTES # (AUTO) 0.3 K/uL (0.8-1.0); MONOCYTES % (AUTO) 2.5 % (1.7-9.3); NEUTROPHILS # (AUTO) 10.7 K/uL (1.8-7.7); NEUTROPHILS % (AUTO) 88.3 % (42.2-75.2); PLATELET COUNT (AUTO) 167 K/uL (140-450); RED BLOOD CELL COUNT(AUTO) 4.15 MIL/uL (4.20-5.40); WHITE BLOOD COUNT (AUTO) 12.1 K/uL (4.8-10.8)
[2020-03-24 18:22] LABS: PROTHROMBIN TIME 10.7 secs (10.8-13.4)
[2020-03-24 18:23] LABS: ALBUMIN 4.1 g/dL (3.4-5.0); ANION GAP 16.2 (8-16); CARBON DIOXIDE 21.1 mmol/L (21-32); CREATININE 1.4 mg/dL (0.6-1.3); POTASSIUM 3.3 mmol/L (3.5-5.1)
[2020-03-24 18:24] LABS: WBC,URINE 16-25 (MOD) /HPF (0-5)
--- NOTE | 2020-03-24 18:37 | NUR ---
RADIOLOGY AT BEDSIDE
--- NOTE | 2020-03-24 18:42 | NUR ---
RADIOLOGY OUT OF ROOM
[2020-03-24] MEDS ORDERED: LEVOFLOXACIN 500 MG/D5W PREMIX 100 ML IV ONE (18:45)
[2020-03-24] MEDS ORDERED: ASPIRIN 81 MG TAB.CHEW PO ONE (18:45)
--- NOTE | 2020-03-24 19:17 | NUR ---
RECEIVED REPORT FROM MEGAN GARCIA
--- NOTE | 2020-03-24 19:17 | NUR ---
REPORT GIVEN TO AURELIO GARCIA. TRANSFER OF CARE AT THIS TIME
--- NOTE | 2020-03-24 19:28 | NUR ---
PT RESTING IN BED, PT ON MONITOR. RESPIRATIONS REGULAR EVEN AND UNLABORED, DENIES SOB, AFEBRILE. LEVIQUIN STILL INFUSING. IV SITE PATENT
--- NOTE | 2020-03-24 19:36 | NUR ---
ADI AND NOVEL SWABS COLLECTED AND TAKEN TO LAB
--- NOTE | 2020-03-24 20:08 | NUR ---
PT AMBULATED TO RESTROOM, STEADY GAIT NOTED
[2020-03-24] MEDS ORDERED: DOCUSATE SODIUM 100 MG GELCAP PO PRN (20:30)
[2020-03-24] MEDS ORDERED: ONDANSETRON 4 MG/2 ML VIAL IM/IVP PRN (20:30)
[2020-03-24] MEDS ORDERED: POTASSIUM CHLORIDE 10 MEQ TABER PO PRN (20:30)
--- NOTE | 2020-03-24 20:46 | NUR ---
SPOKE TO PT'S SISTER TYLOR WANTING AN UPDATE, OK'ED BY PT TO SPEAK TO SISTER. INFO PROVIDED
--- NOTE | 2020-03-24 20:55 | NUR ---
PT STATES HEADACHE IS STARTING TO COME BACK, 06/26. DENIES N/V OR CHILLS, WILL MEDICATE ORDERED
[2020-03-24 21:01] LABS: FREE T4 (FREE THYROXINE) 0.93 ng/dL (0.76-1.46); MAGNESIUM 1.6 mg/dL (1.8-2.4); PHOSPHORUS 2.5 mg/dL (2.5-4.9); THYROID STIMULATING HORMONE 1.61 uIU/mL (0.34-3.74)
[2020-03-24] MEDS ORDERED: cefTRIAXone 1,000 MG VIAL ONE (21:10)
[2020-03-24] MEDS: HYDROcodone/APAP 7.5/325 MG 1 TAB PO PRN (21:17)
--- NOTE | 2020-03-24 21:55 | NUR ---
ADMITTED 69 Y/O F, FROM HOME, AMBULATORY, ON ROOM AIR, DENIES PAIN, NO SOB, V/S TAKEN, MRSA SWAB TAKEN, SAFETY MEASURES IN PLACE, KEPT COMFORTABLE, ORIENTED TO ROOM, CALL LIGHT WITHIN REACH.
[2020-03-24 22:00] VITALS: BP 98/49
--- NOTE | 2020-03-24 22:11 | NUR ---
Patient will be admitted to care of DR ZHAO. Admited to TELE. Will go to room 113. Belongings list completed. Report to HERBER GARCIA.
[2020-03-25] VITALS: BP 98/62
--- NOTE | 2020-03-25 | NUR ---
V/S TAKEN AND RECORDED, KEPT WARM AND COMFORTABLE, CALL LIGHT WITHIN REACH.
--- NOTE | 2020-03-25 02:15 | NUR ---
ASLEEP, RESPIRATION EVEN AND UNLABORED, CALL LIGHT WITHIN REACH.
[2020-03-25 04:00] VITALS: BP 112/45
--- NOTE | 2020-03-25 04:00 | NUR ---
V/S TAKEN, PT USED THE RESTROOM FOR URINE, CAN WALK W/O ASSIST, STABLE, CALL LIGHT WITHIN REACH.
--- NOTE | 2020-03-25 06:49 | NUR ---
PT IS STABLE, NO DISTRESS, NO SOB, DENIES PAIN, ALL NEEDS ATTENDED, KEPT COMFORTABLE, CALL LIGHT WITHIN REACH.
[2020-03-25 07:01] LABS: BASOPHILS % (AUTO) 0.2 % (0.0-2.0); EOSINOPHILS # (AUTO) 0.1 K/uL (0-0.4); EOSINOPHILS % (AUTO) 0.8 % (0.0-4.0); HEMATOCRIT 35.1 % (36-48); HEMOGLOBIN 11.9 g/dL (12.0-16.0); LYMPHOCYTES # (AUTO) 1.6 K/uL (2.5-16.5); LYMPHOCYTES % (AUTO) 15.7 % (20.5-51.1); MEAN CORPUSCULAR HEMOGLOBIN 31 pg (27-31); MEAN CORPUSCULAR HGB CONC 34 g/dL (33-37); MEAN CORPUSCULAR VOLUME 89.7 fL (80-94); MONOCYTES # (AUTO) 0.9 K/uL (0.8-1.0); MONOCYTES % (AUTO) 8.5 % (1.7-9.3); NEUTROPHILS # (AUTO) 7.6 K/uL (1.8-7.7); NEUTROPHILS % (AUTO) 74.8 % (42.2-75.2); PLATELET COUNT (AUTO) 187 K/uL (140-450); RED BLOOD CELL COUNT(AUTO) 3.92 MIL/uL (4.20-5.40); RED CELL DISTRIBUTION WIDTH 16.5 % (11.6-13.7); WHITE BLOOD COUNT (AUTO) 10.1 K/uL (4.8-10.8)
--- NOTE | 2020-03-25 07:31 | NUR ---
BEDSIDE ENDORSEMENT GIVEN TO AM SHIFT RN FOR CONTINUITY OF CARE. PT STABLE.
[2020-03-25 07:52] LABS: CREATININE 1.5 mg/dL (0.6-1.3); POTASSIUM 4.2 mmol/L (3.5-5.1)
[2020-03-25 08:00] VITALS: BP 110/65
[2020-03-25 08:15] LABS: ANION GAP 14.5 (8-16); CARBON DIOXIDE 22.7 mmol/L (21-32)
--- NOTE | 2020-03-25 09:24 | NUR ---
MAGNESIUM LEVEL-1.6, DR. BARRETT INFORMED THRU TEXT MESSAGE, AWAITING REPLY
--- NOTE | 2020-03-25 09:34 | NUR ---
PATIENT HAS BEEN SCREENED AND CATEGORIZED MODERATE NUTRITION RISK. PATIENT WILL BE SEEN WITHIN 3-5 DAYS OF ADMISSION. 03/27/2020-03/29/[address]
[2020-03-25] MEDS: HYDROcodone/APAP 7.5/325 MG 1 TAB PO PRN ×2 (09:54→17:49)
--- NOTE | 2020-03-25 09:54 | NUR ---
COMPLAINED OF HEADACHE 09/26, NORCO 7.5/325 1 TAB PO ORDERED PRN GIVEN
[2020-03-25] MEDS ORDERED: MAG SULF 2000 MG/WATER PREMIX 50 ML IV PRN (10:15)
--- NOTE | 2020-03-25 11:09 | NUR ---
MAGNESIUM LEVEL-1.6, MAGNESIUM 2000MG IV AT 25ML/HOUR GIVEN ORDERED
[2020-03-25 12:00] VITALS: BP 109/61
--- NOTE | 2020-03-25 12:28 | NUR ---
BLOOD C/S-POSTIVE IN GRAM NEGATIVE RODS, DR. BARRETT MADE AWARE, NO CHANGE IN THE ORDER
--- NOTE | 2020-03-25 14:11 | NUR ---
FULLY AWAKE AND ALERT, DENIES PAIN
[2020-03-25 16:00] VITALS: BP 138/83
--- NOTE | 2020-03-25 17:50 | NUR ---
COMPLAINED OF HEADACHE, 09/26. NORCO 7.5MG/325 1 TAB ORDERED PRN GIVEN. HEALTH TEACHING PROVIDED, VERBALIZED UNDERSTANDING
--- NOTE | 2020-03-25 19:30 | NUR ---
ENDORSED TO COST MANAGER IN STABLE CONDITION FOR CONTINUITY OF CARE
--- NOTE | 2020-03-25 19:31 | NUR ---
RECEIVED REPORT FROM DAY SHIFT NURSE. PT IN BED USING PHONE. PT AAOX4, AMBULATORY, ABLE TO MAKE NEEDS KNOWN. RESPIRATIONS ARE EVEN AND UNLABORED TO ROOM AIR. ABDOMEN IS SOFT AND NON-TENDER, ACTIVE BOWEL SOUNDS NOTED. SKIN IS WARM, DRY, AND INTACT. IV ACCESS ON RIGHT HAND G20 PATENT AND INTACT, SALINE LOCKED. PT DENIES ANY PAIN OR DISCOMFORT AT THIS TIME. NO REQUESTS MADE. SAFETY MEASURES IN PLACE. CALL LIGHT WITHIN REACH. WILL CONTINUE TO MONITOR.
[2020-03-25 20:00] VITALS: BP 151/68
--- NOTE | 2020-03-25 20:31 | NUR ---
VS STABLE. SCHEDULED MEDS GIVEN ORDERED. PT NOT IN DISTRESS. DENIES ANY PAIN OR DISCOMFORT. NO REQUESTS MADE. SAFETY MEASURES IN PLACE. WILL CONTINUE TO MONITOR.
[2020-03-25] MEDS ORDERED: NACL 0.9% 1,000 ML IV SCH (21:30)
--- NOTE | 2020-03-25 22:31 | NUR ---
PT WATCHING TELEVISION. PT DENIES ANY PAIN OR DISCOMFORT AT THIS TIME. NO REQUESTS MADE. SAFETY MEASURES IN PLACE. CALL LIGHT WITHIN REACH. WILL CONTINUE TO MONITOR.
[2020-03-26] VITALS: BP 174/67
[2020-03-26] MEDS ORDERED: hydrALAZINE 10 MG TAB PO PRN
[2020-03-26] MEDS ORDERED: ENALAPRIL 10 MG TAB ONE (00:05)
[2020-03-26] MEDS: ENALAPRIL 10 MG TAB PO SCH (00:11)
[2020-03-26] MEDS: LORazepam 2 MG/ML VIAL IVP PRN ×2 (00:20→23:18)
--- NOTE | 2020-03-26 00:20 | NUR ---
BP 174/67 HR 86. PT ALSO HAVING ANXIETY. MD MADE AWARE, ORDERED TO GIVE VASOTEC 10MG AND PRN ATIVAN 0.5MG IVP. WILL CONTINUE TO MONITOR.
--- NOTE | 2020-03-26 01:07 | NUR ---
VS RECHECKED. BP 152/74 HR 94. PT NOT ANXIOUS ANYMORE. PT WENT BACK TO SLEEP. WILL CONTINUE TO MONITOR.
--- NOTE | 2020-03-26 02:31 | NUR ---
ASLEEP. VISIBLE CHEST RISE AND FALL NOTED. PT NOT IN DISTRESS. PT KEPT COMFORTABLE. CALL LIGHT WITHIN REACH. WILL CONTINUE TO MONITOR.
[2020-03-26 04:00] VITALS: BP 151/78
--- NOTE | 2020-03-26 04:41 | NUR ---
VS STABLE. PT RESTING IN BED. PT DENIES ANY PAIN OR DISCOMFORT AT THIS TIME. NO REQUESTS MADE. SAFETY MEASURES IN PLACE. WILL CONTINUE TO MONITOR.
--- NOTE | 2020-03-26 07:15 | NUR ---
RECEIVED PT FROM FENCE SETTER NURSE, PT IS RESTING IN BED, ON ROOM AIR, CONTINENT, ON TELE MONITOR, CALL LIGHT WITHIN REACH, SAFETY AND FALL PRECAUTIONS IN PLACE, WILL CONTINUE TO MONITOR.
--- NOTE | 2020-03-26 07:17 | NUR ---
ENDORSED TO DAY SHIFT NURSE FOR CONTINUITY OF CARE
[2020-03-26 07:21] LABS: BASOPHILS % (AUTO) 0.2 % (0.0-2.0); EOSINOPHILS % (AUTO) 0.7 % (0.0-4.0); HEMATOCRIT 36.5 % (36-48); HEMOGLOBIN 12.2 g/dL (12.0-16.0); LYMPHOCYTES # (AUTO) 1.5 K/uL (2.5-16.5); LYMPHOCYTES % (AUTO) 21.1 % (20.5-51.1); MEAN CORPUSCULAR HEMOGLOBIN 30 pg (27-31); MEAN CORPUSCULAR HGB CONC 33 g/dL (33-37); MONOCYTES # (AUTO) 0.8 K/uL (0.8-1.0); MONOCYTES % (AUTO) 11.2 % (1.7-9.3); NEUTROPHILS # (AUTO) 4.9 K/uL (1.8-7.7); NEUTROPHILS % (AUTO) 66.8 % (42.2-75.2); PLATELET COUNT (AUTO) 192 K/uL (140-450); RED BLOOD CELL COUNT(AUTO) 4.05 MIL/uL (4.20-5.40); RED CELL DISTRIBUTION WIDTH 16.3 % (11.6-13.7); WHITE BLOOD COUNT (AUTO) 7.3 K/uL (4.8-10.8)
[2020-03-26 07:31] LABS: MAGNESIUM 2.3 mg/dL (1.8-2.4); PHOSPHORUS 3.9 mg/dL (2.5-4.9)
[2020-03-26 07:39] LABS: ANION GAP 14.2 (8-16); CREATININE 1.3 mg/dL (0.6-1.3); POTASSIUM 4.2 mmol/L (3.5-5.1)
[2020-03-26 08:00] VITALS: BP 132/80
[2020-03-26 08:06] LABS: T4 (THYROXINE) 6.8 ug/dL (4.5-12.0)
[2020-03-26] MEDS: FAMOTIDINE 20 MG TAB PO SCH (08:20)
[2020-03-26] MEDS: atenoloL 25 MG TAB PO SCH (08:21)
--- NOTE | 2020-03-26 08:36 | NUR ---
SCHEDULED MORNING MEDICATIONS ADMINISTERED, APICAL HR 94, BP 132/80, RR 18, O2 96%, PT EDUCATION GIVEN, PT VERBALIZED UNDERSTANDING, CALL LIGHT WITHIN REACH, NO SIGNS OF DISTRESS NOTED, WILL CONTINUE TO MONITOR.
--- NOTE | 2020-03-26 10:23 | NUR ---
PT IS RESTING IN BED, NO SIGNS OF DISTRESS NOTED, CALL LIGHT WITHIN REACH, WILL CONTINUE TO MONITOR.
--- NOTE | 2020-03-26 11:20 | NUR ---
BROUGHT REQUESTED TURKEY SANDWICH TO PT, REINFORCED TAPE AROUND IV, NO S/S OF DISTRESS NOTED, CALL LIGHT WITHIN REACH, WILL CONTINUE TO MONITOR.
[2020-03-26 12:00] VITALS: BP 141/81
--- NOTE | 2020-03-26 13:46 | NUR ---
ROUNDS MADE, FAMILY BROUGHT MAGAZINES FOR PT, MAGAZINES DELIVERED TO PT, PT IS SITTING IN BED, NO S/S OF DISTRESS NOTED, CALL LIGHT IS WITHIN REACH, WILL CONTINUE TO MONITOR.
--- NOTE | 2020-03-26 15:16 | NUR ---
MADE ROUNDS, PT IS SITTING AT BEDSIDE EATING A SALAD, NEEDS MET, NO SIGNS OF DISTRESS NOTED, CALL WALTER WITHIN REACH, WILL CONTINUE TO MONITOR.
[2020-03-26 16:00] VITALS: BP 139/73
--- NOTE | 2020-03-26 17:24 | NUR ---
MADE ROUNDS, PT IS SITTING UP WATCHING TV, NEEDS ARE MET, NO SIGNS OF DISTRESS, CALL LIGHT WITHIN REACH, WILL CONTINUE TO MONITOR.
--- NOTE | 2020-03-26 19:15 | NUR ---
ENDORSED PT TO PROGRESS WORKER NURSE FOR CONTINUITY OF CARE.
[2020-03-26 20:00] VITALS: BP 148/77
[2020-03-26] MEDS: ACETAMINOPHEN 325 MG TAB PO PRN (21:53)
[2020-03-27 00:30] VITALS: BP 106/64
[2020-03-27 04:32] VITALS: BP 122/66
[2020-03-27 06:26] LABS: BASOPHILS % (AUTO) 0.3 % (0.0-2.0); EOSINOPHILS % (AUTO) 0.6 % (0.0-4.0); HEMATOCRIT 36.4 % (36-48); HEMOGLOBIN 12.3 g/dL (12.0-16.0); LYMPHOCYTES # (AUTO) 1.9 K/uL (2.5-16.5); LYMPHOCYTES % (AUTO) 38.4 % (20.5-51.1); MEAN CORPUSCULAR HEMOGLOBIN 30 pg (27-31); MEAN CORPUSCULAR HGB CONC 34 g/dL (33-37); MEAN CORPUSCULAR VOLUME 89.1 fL (80-94); MONOCYTES # (AUTO) 0.6 K/uL (0.8-1.0); MONOCYTES % (AUTO) 12.3 % (1.7-9.3); NEUTROPHILS # (AUTO) 2.4 K/uL (1.8-7.7); NEUTROPHILS % (AUTO) 48.4 % (42.2-75.2); PLATELET COUNT (AUTO) 188 K/uL (140-450); RED BLOOD CELL COUNT(AUTO) 4.08 MIL/uL (4.20-5.40); RED CELL DISTRIBUTION WIDTH 16.1 % (11.6-13.7)
[2020-03-27 07:01] LABS: ANION GAP 14.7 (8-16); CARBON DIOXIDE 23.5 mmol/L (21-32); CREATININE 1.5 mg/dL (0.6-1.3); POTASSIUM 4.2 mmol/L (3.5-5.1)
--- NOTE | 2020-03-27 07:15 | NUR ---
RECEIVED PT FROM MIXER AND SCALER NURSE, PT IS RESTING IN BED, ON ROOM AIR, TELE MONITOR ON, IV TO R HAND 20G SALINE LOCK, CONTINENT, CALL LIGHT WITHIN REACH, SAFETY AND FALL PRECAUTIONS IN PLACE, WILL CONTINUE TO MONITOR.
[2020-03-27 08:00] VITALS: BP 128/69
[2020-03-27] MEDS: atenoloL 25 MG TAB PO SCH (09:01)
[2020-03-27] MEDS: FAMOTIDINE 20 MG TAB PO SCH (09:01)
[2020-03-27] MEDS: ENALAPRIL 10 MG TAB PO SCH (09:01)
--- NOTE | 2020-03-27 09:15 | NUR ---
SCHEDULED MEDICATIONS ADMINISTERED, EDUCATION PROVIDED, PT VERBALIZED UNDERSTANDING, CALL LIGHT WITHIN REACH, NEEDS MED, WILL CONTINUE TO MONITOR.
--- NOTE | 2020-03-27 11:46 | NUR ---
REINFORCED IV TAPE, BROUGHT DECAF COFFEE REQUESTED BY PT, NEEDS MET, CALL LIGHT WITHIN REACH, WILL CONTINUE TO MONITOR.
[2020-03-27 12:00] VITALS: BP 107/69
--- NOTE | 2020-03-27 12:12 | NUR ---
DC PLANNIN YRS OLD FEMALE PATIENT WAS ADMITTED FROM HOME WITH A DX OF NSTEMI AND UTI. PT HAS A HX OF HTN, GERD AND CERVICAL CA S/P EXCISION CHEMO /RADIATION THERAPY. RAPID AND PCR COVID TEST NEGATIVE. STARTED IVF, ROCEPHIN IV ABX. CONSULTED WITH HAIR MACHINE OPERATOR, CARDIO AND ID. PER NEPHRO CR HOLDING STABLE 1.2-1.5 CONTINUE TREATMENT FOR PYELONEPHRITIS NO REQUIREMENT FOR SLITTING AND SHIPPING SUPERVISOR AT THIS TIME. DC PLAN TO GO HOME WHEN STABLE. CM TO FOLLOW. Addendum: 03/28/20 at 1332 by Antoinette Foote CM DC MACHINE TOOL DESIGNER: SPOKE TO REP AT [facility] HE STATED THAT THIS PATIENT IS ASSIGNED TO [facility]. HE WILL PROVIDE HIM WITH MY INFORMATION TO CONTACT ME. Addendum: 03/28/20 at 1455 by Antoinette Foote CM DC MACHINE TOOL DESIGNER: FAXED ORDER FOR IV ABX TO [facility]. SPOKE TO YANETH SHE IS REVIEWING WILL FOLLOW UP. Addendum: 03/28/20 at 1525 by Antoinette Foote CM VANESSA HERRING: FOLLOWED UP WITH [facility] AND SPOKE TO RUBI. SHE IS REVIEWING STILL AND WILL GET BACK TO ME SHORTLY. SHE MAY BE ABLE TO HELP SET UP NURSING FOR HOME HEALTH. Addendum: 03/28/20 at 1543 by Jose CHADWICK LOS CONTACTED [facility] [phone] EXT. [phone] TO ARRANGE HOME HEALTH FOR IV ANTIBIOTICS MEROPENEM 1 GRAM BID FOR 1 WEEK FOR BACTEREMIA AND UTI. LOS SPOKE WITH ARMANDO FROM [facility] WHO STATED SHE WILL LEAVE ALLISON MESSAGE BUT ALLISON IS UNAVAILABLE BECAUSE HE IS DOING ROUNDS. LOS PROVIDED ARMANDO MADISON CONTACT NUMBER. LOS WILL FOLLOW UP. Addendum: 03/28/20 at 1617 by Antoinette Foote CM VANESSA HERRING: RECEIVED A PHONE CALL FROM [facility] HE STATED THAT THEY ARE CONTRACTED WITH [facility]. FAXED ORDER TO [facility] WILL FOLLOW UP Addendum: 03/28/20 at 1646 by Antoinette Foote CM VANESSA HERRING: RAKESH VENEGAS AT [facility] THEY ARE ABLE TO PROVIDE PATIENT THE IV ABXJd VENEGAS SET UP HOME HEALTH WITH [facility]. Addendum: 03/28/20 at 1701 by Antoinette Foote CM VANESSA MACHINE TOOL DESIGNER: NOTIFIED CHARGE NURSE FRANCISCA THAT HOME HEALTH AND THE IV ABX HAS BEEN SET UP. THE ABX WILL BE DELIVERED TO PATIENTS HOME TOMORROW MORNING. PATIENT WILL GET LAST DOSE HERE TONIGHT AROUND 7:00 PM BEFORE GOING HOME.
--- NOTE | 2020-03-27 13:31 | NUR ---
MADE ROUNDS, PT IS WATCHING TV, NO SIGNS OF DISTRESS NOTED, CALL LIGHT WITHIN REACH, SAFETY AND FALL PRECAUTIONS IN PLACE, WILL CONTINUE TO MONITOR.
--- NOTE | 2020-03-27 15:32 | NUR ---
NEEDS MET, PT REQUESTED DECAF COFFEE, PROVIDED, CALL LIGHT WITHIN REACH, WILL CONTINUE TO MONITOR.
[2020-03-27 16:00] VITALS: BP 132/71
--- NOTE | 2020-03-27 17:24 | NUR ---
PT IS RESTING IN BED, NO SIGNS OF DISTRESS NOTED,WILL CONTINUE TO MONITOR.
[2020-03-27] MEDS ORDERED: NACL 0.9% 1,000 ML IV ONE (18:50)
--- NOTE | 2020-03-27 19:20 | NUR ---
RECEIVED BEDSIDE REPORT FROM DAY SHIFT NURSE. PATIENT IS AWAKE, ALERT, AND COOPERATIVE. RESPIRATION EVEN UNLABORED ON ROOM AIR. NO DISTRESS NOTED. SKIN IS WARM AND DRY. IV IS INFILTRATED. WILL INSERT A NEW ONE. PLAN OF CARE WAS DISCUSSED. ALL SAFETY MEASURES IN PLACE. BED IS AT LOW POSITION. CALL LIGHT WITHIN REACH. WILL CONTINUE TO MONITOR
--- NOTE | 2020-03-27 19:45 | NUR ---
ENDORSED PT TO ELIGIBILITY MANAGER NURSE FOR CONTINUITY OF CARE.
[2020-03-27 20:00] VITALS: BP 121/78
--- NOTE | 2020-03-27 20:23 | NUR ---
ALL SCHEDULED MEDS WERE GIVEN PER ORDER. NO ASE NOTED. WILL CONTINUE TO MONITOR
--- NOTE | 2020-03-27 20:30 | NUR ---
IV INSERTED ON THE LEFT FOREARM. PATIENT TOLERATED IT WELL.
[2020-03-27] MEDS: MEROPENEM 1,000 MG in NACL 0.9% 100 ML IV SCH (20:32)
[2020-03-27] MEDS ORDERED: FAMOTIDINE 20 MG TAB PO SCH (21:10)
--- NOTE | 2020-03-27 21:25 | NUR ---
PATIENT COMPLAINED OF HEART BURN. PEPCID GIVEN PER ORDER. WILL CONTINUE TO MONITOR
--- NOTE | 2020-03-27 22:40 | NUR ---
PATIENT ASK FOR CRACKERS. CRACKERS PROVIDED.
[2020-03-28] VITALS: BP 157/78
--- NOTE | 2020-03-28 01:30 | NUR ---
MADE ROUNDS. PATIENT SLEEPING RESPIRATION EVEN UNLABORED ON ROOM AIR. NO DISTRESS NOTED. WILL CONTINUE TO MONITOR
--- NOTE | 2020-03-28 03:26 | NUR ---
MADE ROUNDS. PATIENT SLEEPING RESPIRATION EVEN UNLABORED ON ROOM AIR. NO DISTRESS NOTED. WILL CONTINUE TO MONITOR
[2020-03-28 04:00] VITALS: BP 104/65
--- NOTE | 2020-03-28 07:18 | NUR ---
ENDORSED PATIENT TO DAY SHIFT NURSE FOR CONTINUITY OF CARE.
--- NOTE | 2020-03-28 07:20 | NUR ---
HANDOFF REPORT RECEIVED FROM GRAIN OILSEED OR PASTURE FARM MANAGER RN. POC REVIEWED AND DISCUSSED. PT IS RESTING AND CALM. DENIES DISCOMFORT. ON RA. NO S/S OF RESPIRATORY DISTRESS. AFEBRILE. DENIES CHEST PAIN. LFA PERIPHERAL IV INTACT. CALL LIGHT WITHIN REACH. WILL CONTINUE TO MONITOR.
[2020-03-28 07:59] LABS: BASOPHILS % (AUTO) 0.3 % (0.0-2.0); CARBON DIOXIDE 21.1 mmol/L (21-32); CREATININE 1.4 mg/dL (0.6-1.3); EOSINOPHILS % (AUTO) 0.6 % (0.0-4.0); HEMATOCRIT 33.6 % (36-48); HEMOGLOBIN 11.1 g/dL (12.0-16.0); LYMPHOCYTES # (AUTO) 1.7 K/uL (2.5-16.5); LYMPHOCYTES % (AUTO) 32.5 % (20.5-51.1); MEAN CORPUSCULAR HEMOGLOBIN 29 pg (27-31); MEAN CORPUSCULAR HGB CONC 33 g/dL (33-37); MEAN CORPUSCULAR VOLUME 89.1 fL (80-94); MONOCYTES # (AUTO) 0.5 K/uL (0.8-1.0); MONOCYTES % (AUTO) 8.9 % (1.7-9.3); NEUTROPHILS % (AUTO) 57.7 % (42.2-75.2); PLATELET COUNT (AUTO) 208 K/uL (140-450); POTASSIUM 4.1 mmol/L (3.5-5.1); RED BLOOD CELL COUNT(AUTO) 3.77 MIL/uL (4.20-5.40); RED CELL DISTRIBUTION WIDTH 16.1 % (11.6-13.7); WHITE BLOOD COUNT (AUTO) 5.2 K/uL (4.8-10.8)
[2020-03-28 08:00] VITALS: BP 125/83
[2020-03-28] MEDS: FAMOTIDINE 20 MG TAB PO SCH (09:05)
[2020-03-28] MEDS: ENALAPRIL 10 MG TAB PO SCH (09:05)
[2020-03-28] MEDS: MEROPENEM 1,000 MG in NACL 0.9% 100 ML IV SCH ×2 (09:06→19:08)
[2020-03-28] MEDS: atenoloL 25 MG TAB PO SCH (09:09)
--- NOTE | 2020-03-28 09:15 | NUR ---
SEEN AND EXAMINED BY DR. GRIFFIN. MEDS GIVEN. NO CHANGE OF CONDITION.
--- NOTE | 2020-03-28 09:16 | NUR ---
SOCIAL WORK NOTE: Patient's Orientation Unable To Assess Information Provided By TYLOR NICOLAS - MOTHER Comments SW WAS UNABLE TO MEET PATIENT AT BEDSIDE. SW COMPLETED ASSESSMENT WITH PATIENT'S MOTHER. Zipper Repairer, Realtionship and Phone Number TYLOR DEGROOT [phone] [facility] Power of Site Supervising Technical Operator No Does Patient Have a POLST No Identifying Problems No Social Work Triggers Is A Social Work Consult Needed No Mandate Report Filed No Explanation Of Identifying Problems PATIENT IS A 69-YEAR-OLD FEMALE ADMITTED FOR NSTEMI AND UTI. PATIENT HAS PMHX OF BOTULISM POISONING, CERVICAL CANCER, HYPERTENSION, AND GERD. Admitted From Home Pre-Admission Level Of Functioning Status Independent/Ambulatory Level Of Functioning Comment MOTHER STATED THAT PATIENT IS INDEPENDENT WITH ALL ADLS. Prior Resources/Services Used In Last 12 Months No Prior Resources Used Prior DME No Prior DME Used Dialysis Comments N/A Living Situation Apartment Lives W/Significant Other Other Living Situation/Comment PER MOTHER, PATIENT LIVES WITH BOYFRIEND. Patient Had Caregiver No Home Support No Caregiver Issues Financial Issues No Known Financial Issue Referral To The Financial Counselor Needed No Factors/Needs No D/C Needs Identified Pt/Rep Participated In Discharge Plan Yes Patient/Family Agress With Discharge Plan Yes Discharge Plan Comments TENTATIVE DISCHARGE PLAN IS FOR PATIENT TO RETURN HOME. DC Plan Status Initiated
[2020-03-28] MEDS: ACETAMINOPHEN 325 MG TAB PO PRN (11:56)
[2020-03-28 12:00] VITALS: BP 177/81
--- NOTE | 2020-03-28 12:03 | NUR ---
PT HAS HIGH BP. VERBALIZED HEADACHE 6/10 PAIN LEVEL. PT DENIES CHEST PAIN. DENIES NAUSEA OR VOMITING, WILL MONITOR CLOSELY.
--- NOTE | 2020-03-28 12:12 | NUR ---
PRN APRESOLINE FOR SBP > 160 GIVEN. PT STATED " I FEEL LIKE MY HANDS ARE SHAKY. "
--- NOTE | 2020-03-28 14:15 | NUR ---
03/28/20 RD INITIAL ASSESSMENT COMPLETED PLEASE REFER TO NUTRITION ASSESSMENT UNDER CARE ACTIVITY FOR ESTIMATED NUTRITIONAL NEEDS. 1. CONTINUE CARDIAC DIET TOLERATED 2. RD PROVIDED CARDIAC NUTRITION EDUCATION. PT ACCEPTED 3. RD TO FOLLOW-UP 5-7 DAYS, LOW RISK JOSHUA GRAY RD
[2020-03-28] MEDS ORDERED: MERO1PDS8 IV (15:29)
[2020-03-28 16:00] VITALS: BP 147/81
--- NOTE | 2020-03-28 19:15 | NUR ---
RECD. RESTING IN BED, AWAKE, A/OX4. RESPIRATION EVEN AND UNLABORED. MERREM IVPB INFUSING AT 200 ML/HR, LEFT FOREARM G20. AWARE OF DISCHARGE TONIGHT. DISCHARGE INSTRUCTIONS GIVEN. VERBALIZED UNDERSTANDING. DENIES PAIN 0/10.
--- NOTE | 2020-03-28 19:50 | NUR ---
ANTIBIOTIC FINISHED. IV LINE DISCONTINUED.
[2020-03-28 20:00] VITALS: BP 157/76
--- NOTE | 2020-03-28 20:15 | NUR ---
ALREADY DRESSED UP TO GO HOME, BELONGINGS IN TWO BAGS. SIGNED ALL DISCHARGE PAPERS.
--- NOTE | 2020-03-28 20:35 | NUR ---
TAKEN TO HOSPITAL LOBBY PARKING VIA W/C IN STABLE CONDITION ACCOMPANIED BY INFORMATION TECHNOLOGY AUDITOR TO WAITING PRIVATE VEHICLE WITH SISTER AND BROTHER IN LAW TO TAKE PATIENT HOME. CN AND HELICOPTER UTILITY AIRCREWMAN JULIO C AWARE OF DISCHARGE.
== END 2020-03-28 20:35 | disposition home health service (06) | DRG 720 ==
LOC: MED 16:54 → MTU 19:42
PROVIDERS: ADMIT Emergency Medicine; ATTEND Emergency Medicine
DX: A41.59 Other Gram-negative sepsis (principal); N17.0 Acute kidney failure with tubular necrosis; E87.1 Hypo-osmolality and hyponatremia; E87.6 Hypokalemia; Z20.822 Contact with and (suspected) exposure to COVID-19; B96.1 Klebsiella pneumoniae [K. pneumoniae] as the cause of diseases classified elsewhere; K21.9 Gastro-esophageal reflux disease without esophagitis; E86.0 Dehydration; I12.9 Hypertensive chronic kidney disease with stage 1 through stage 4 chronic kidney disease, or unspecified chronic kidney disease; N18.31 Chronic kidney disease, stage 3a; N12 Tubulo-interstitial nephritis, not specified as acute or chronic; B96.20 Unspecified Escherichia coli [E. coli] as the cause of diseases classified elsewhere; I25.2 Old myocardial infarction; Z85.41 Personal history of malignant neoplasm of cervix uteri; Z90.49 Acquired absence of other specified parts of digestive tract; Z90.5 Acquired absence of kidney; Z79.899 Other long term (current) drug therapy; Z87.891 Personal history of nicotine dependence; Z93.0 Tracheostomy status
CPT/HCPCS: 36415; 71045; 80048; 80053; 81001; 83036; 83605; 83735; 83880; 84100; 84436; 84439; 84443; 84479; 84484; 85025; 85610; 85730; 87040; 87081; 87086; 93005; 99285; J0696; J1644; J1956; J2060; J2185; J3475; J7030; J7060; U0003

== ENCOUNTER 2020-04-01 13:18 | Emergency (ER) | payer MEDICARE, MEDICAID, SELFPAY ==
[~2020-04-01] VITALS: Ht 152.4 cm; Wt 68.5 kg
[~2020-04-01 13:18] MED LIST changes: -AMLO10TA PO; -INUL1CTB PO; -LEVO750T51 PO; +MERO1PDS8 IV
[2020-04-01 13:24] VITALS: BP 152/74
--- NOTE | 2020-04-01 13:27 | NUR ---
PT TAKEN TO BED 11.
--- NOTE | 2020-04-01 13:38 | NUR ---
69 Y/O F EXPLAINING THAT SHE NEEDS AN IV INSERTION FOR ANTIBIOTICS. PT WAS ADMITTED TO [facility] FOR UTI ON 03/28/20. WAS TOLD SHE NEEDS AN IV PLACEMENT FOR ANTIBIOTICS. DENIES ANY SOB, COUGH, CHEST PAIN OR CONTACT WITH ANYONE COVID POSITIVE.
[2020-04-01] MEDS ORDERED: MEROPENEM 1,000 MG in NACL 0.9% 100 ML IV ONE (13:50)
[2020-04-01] MEDS ORDERED: MEROPENEM 1,000 MG VIAL IV ONE (13:53)
--- NOTE | 2020-04-01 14:46 | NUR ---
TALKED TO DAGMAR PICCLINE NURSE FOR THE PICCLINE ORDER, ADRIÁN LEON
--- NOTE | 2020-04-01 14:50 | NUR ---
UNABLE TO OBTAIN PERIPHERAL LINE ACCESS, PICC LINE ORDERED AT THIS TIME
--- NOTE | 2020-04-01 16:14 | NUR ---
Dr. Chu is evaluating the patient at bedside.
--- NOTE | 2020-04-01 18:17 | NUR ---
PICC line nurse at bedside.
--- NOTE | 2020-04-01 18:38 | NUR ---
automotive specialty technician at bedside for CXR.
--- NOTE | 2020-04-01 19:15 | NUR ---
RECEIVED TRANSDFER OF CARE REPORT FROM FAUSTO GARCIA FOR CONTINUATION OF CARE.
--- NOTE | 2020-04-01 19:20 | NUR ---
PT WAS FOUND AWAKE SITTING ON BED. PT STATES NO DISTRESS AND NO DISCOMFORT. BED LOCKED IN LOWEST POSITION.
[2020-04-01 19:24] VITALS: BP 156/63
--- NOTE | 2020-04-01 19:24 | NUR ---
Patient discharged with v/s stable. Written and verbal after care instructions given and explained. Patient verbalized understanding. Ambulatory with steady gait. All questions addressed prior to discharge. Advised to follow up with PMD.
--- NOTE | 2020-04-01 19:24 | NUR ---
PT IS BEING DISCHARGED WITH A PICC LINE IN RIGHT ARM INSERTED BY CASIE.
== END 2020-04-01 19:24 | disposition home or self-care (01) ==
LOC: MED 13:18
DX: N12 Tubulo-interstitial nephritis, not specified as acute or chronic (principal); R78.81 Bacteremia; Z45.2 Encounter for adjustment and management of vascular access device; Z87.448 Personal history of other diseases of urinary system; Z85.41 Personal history of malignant neoplasm of cervix uteri; Z79.899 Other long term (current) drug therapy
CPT/HCPCS: 36569; 71045; 96365; 99285; J2185; 36568

== ENCOUNTER 2020-04-04 20:59 | Emergency (ER) | payer MEDICARE, MEDICAID, SELFPAY ==
[~2020-04-04] VITALS: Ht 160 cm; Wt 68.9 kg
[2020-04-04 21:05] VITALS: BP 167/75
--- NOTE | 2020-04-04 21:05 | NUR ---
to bed ambulatory
--- NOTE | 2020-04-04 22:32 | NUR ---
EKG PERFORMED IN PHLEBOTOMY CHAIR WITH SCREEN. EKG READS SINUS RHYTHM @ 69
[2020-04-04 23:22] VITALS: BP 163/72
== END 2020-04-04 23:22 | disposition home or self-care (01) ==
LOC: MED 20:59
DX: M62.830 Muscle spasm of back (principal); R00.8 Other abnormalities of heart beat; I10 Essential (primary) hypertension; Z98.890 Other specified postprocedural states; Z85.41 Personal history of malignant neoplasm of cervix uteri
CPT/HCPCS: 71045; 93005; 99283

== ENCOUNTER 2020-04-11 18:46 | Emergency (ER) | payer MEDICARE, MEDICAID, SELFPAY ==
[~2020-04-11] VITALS: Ht 160 cm; Wt 69.4 kg
[2020-04-11 18:54] VITALS: BP 173/86
--- NOTE | 2020-04-11 19:03 | NUR ---
TAKEN TO BED 4
--- NOTE | 2020-04-11 19:05 | NUR ---
69 Y/O F COMING IN FROM HOME WITH C/C LEFT WRIST PAIN S/P MECHANICAL FALL. PT STATES 45 MINUTES AGO, SHE WAS CLIMBING ON HER COUCH TO CLOSE THE CURTAINS, FELL BACKWARDS AND LANDED ON HER LEFT WRIST. PT STATES LEFT WRIST PAIN 10/10. (+) PMSC, PATIENT UNABLE TO MOVE WRIST AT THIS TIME. PT DENIES LOSS OF CONSCIOUSNESS. PT STATES SHE APPLIED ICE PACK WITH POSITIVE RELIEF; NO MEDICATIONS PRIOR TO ER ARRIVAL. PT NOTED WITH PICC LINE TO RIGHT UPPER ARM THAT WAS PLACED TWO WEEKS AGO; COMPLETED TREATMENT FOR UTI (DIAGNOSED 02/2020) THIS FRIDAY. PT DENIES DIZZINESS, HEADACHE, FEVER/CHILLS, SOB, CHEST PAIN, ABDOMINAL PAIN. PT PLACED ONTO SENIOR ADMINISTRATIVE ASSISTANT; HYPERTENSIVE AT 177/88. BED LOCKED IN LOWEST POSITION, SIDE RAILS X 1. PMH: HTN, UTI (02/2020), ACID REFLUX MEDS: ATENOLOL, ANALAPRIL, OMPERAZOLE NKA SX: RIGHT NEPHRECTOMY 2017, BLADDER REMOVAL 1995, 32 YEARS AGO
--- NOTE | 2020-04-11 19:08 | NUR ---
DR. SAMUEL IS EVALUATING PATIENT AT BEDSIDE.
[2020-04-11] MEDS ORDERED: KETOROLAC 60 MG/2 ML VIAL IM ONE (19:10)
--- NOTE | 2020-04-11 19:15 | NUR ---
RECEIVED ENDORSEMENT FROM AM SHIFT RN. PT IS AWAKE, ALERT, NO SOB, S/P FALL FROM HOME, W/ LEFT WRIST PAIN 10/1O. MEDICATED BY AM NURSE. W/ MAHNAZ PICC, SAFETY MEASURES IN PLACE, BED IN LOW POSITION, WILL CONTINUE TO MONITOR.
--- NOTE | 2020-04-11 19:17 | NUR ---
XRAY AT BEDSIDE.
--- NOTE | 2020-04-11 19:17 | NUR ---
REPORT AND TRANSFER OF CARE GIVEN TO AURELIO GARCIA.
--- NOTE | 2020-04-11 19:17 | NUR ---
RECEIVED REPORT FROM CARMEN GARCIA
[2020-04-11] MEDS ORDERED: HYDROcodone/APAP 5/325 MG 1 TAB TAB PO ONE (19:50)
--- NOTE | 2020-04-11 20:00 | NUR ---
POSTERIOR SHORT ARM SPLINT PLACED ON PT L ARM, WRAPPED WITH JODY WRAP. +CSM SLING APPLIED AFTER
--- NOTE | 2020-04-11 20:07 | NUR ---
NORCO PO GIVEN ORDERED FOR MODERATE PAIN, TOLERATED WELL.
[2020-04-11 20:40] VITALS: BP 145/85
== END 2020-04-11 20:40 | disposition home or self-care (01) ==
LOC: MED 18:46
DX: S52.512A Displaced fracture of left radial styloid process, initial encounter for closed fracture (principal); S52.612A Displaced fracture of left ulna styloid process, initial encounter for closed fracture; I10 Essential (primary) hypertension; Z85.41 Personal history of malignant neoplasm of cervix uteri; Z98.890 Other specified postprocedural states; Z79.899 Other long term (current) drug therapy; W19.XXXA Unspecified fall, initial encounter; Y93.89 Activity, other specified; Y92.89 Other specified places as the place of occurrence of the external cause; Y99.8 Other external cause status
CPT/HCPCS: 29125; 73110; 96372; 99283; J1885

== ENCOUNTER 2020-04-13 02:08 | Emergency (ER) | payer MEDICARE, MEDICAID ==
[~2020-04-13] VITALS: Ht 160 cm; Wt 68.9 kg
[2020-04-13 02:20] VITALS: BP 177/72
--- NOTE | 2020-04-13 02:34 | NUR ---
PT WAS SEEN BY MD CARREON. EMT IS REWRAPPING SPLINT ON L HAND
--- NOTE | 2020-04-13 02:34 | NUR ---
PT SEEN HERE 2 DAYS AGO FOR FRACTURED WRIST. WOKE UP THIS MORNING WITH C/O SEVERE PAIN TO L HAND AND ARM AND DIZZINESS. DENIES ANY N/V/D, NO VISION ISSUES. PT HAS SWELLING TO L HAND AND FINGERS AND STATES THE PAIN IS THROBBING AND 9/10. SHE BELIEVES THE WRAPPING ON THE SPLINT IS TOO TIGHT. PT ABLE TO MOVE FINGERS BUT IT'S VERY PAINFUL. PT HAS GOTTEN UP X 2 TO WALK TO THE RESTROOM WITH STEADY GAIT. DENIES ANY DIZZINESS AT THIS TIME. NKA HX - HTN
[2020-04-13 02:40] VITALS: BP 177/72
== END 2020-04-13 02:42 | disposition home or self-care (01) ==
LOC: MED 02:08
DX: R42 Dizziness and giddiness (principal); K21.9 Gastro-esophageal reflux disease without esophagitis; I10 Essential (primary) hypertension; Z79.899 Other long term (current) drug therapy; Z85.41 Personal history of malignant neoplasm of cervix uteri
CPT/HCPCS: 99283

== ENCOUNTER 2020-04-13 13:28 | Emergency (ER) | payer MEDICARE, MEDICAID ==
[~2020-04-13] VITALS: Ht 160 cm; Wt 68.9 kg
[2020-04-13 13:41] VITALS: BP 190/87
--- NOTE | 2020-04-13 13:50 | NUR ---
Note leonard in EDM - 04/13/20 at 1414 by MED1 69 y/o female c/o left hand pain 09/26 describes as pressure-like radiates to left wrist X1day. Pt states she was seen here in ER X2days ago for left arm sprain, today woke up to swelling and pain to left hand. Pt was told to come to ER to have rings removed. Swelling noted with non-pitting edema +2, mild erythema noted, warm to touch. Pt denies fever/chills, denies N/V/D. PMH: HTN NKA
--- NOTE | 2020-04-13 13:51 | NUR ---
PT AMB TO BED 5
--- NOTE | 2020-04-13 14:00 | NUR ---
EMT at pt bedside placed affected hand in warm soapy water to soak.
--- NOTE | 2020-04-13 14:19 | NUR ---
Pt ambulated to restroom with a steady gait.
--- NOTE | 2020-04-13 14:25 | NUR ---
ALE RACOS AT BEDSIDE EXAMINING PATIENT
== END 2020-04-13 14:55 | disposition home or self-care (01) ==
LOC: MED 13:28
DX: S60.451A Superficial foreign body of left index finger, initial encounter (principal); S60.453A Superficial foreign body of left middle finger, initial encounter; R60.0 Localized edema; I10 Essential (primary) hypertension; M79.10 Myalgia, unspecified site; X58.XXXA Exposure to other specified factors, initial encounter; Y93.89 Activity, other specified; Y92.89 Other specified places as the place of occurrence of the external cause; Y99.8 Other external cause status
CPT/HCPCS: 99284

== ENCOUNTER 2020-06-30 12:16 | Emergency (ER) | payer MEDICARE, MEDICAID ==
[~2020-06-30] VITALS: Ht 160 cm; Wt 68.0 kg
[2020-06-30 12:21] VITALS: BP 139/66
--- NOTE | 2020-06-30 12:43 | NUR ---
69 Y/O FEMALE C/O DYSURIA PAIN 7/10 X 1WEEK ACCOMPANIED BY NAUSEA. DENIES VOMITING. DENIES BLEEDING, DENIES VAGINAL DISCHARGE.+SUBJECTIVE FEVER, NO CHILLS. PT STATES SHE HAD A PHONE APPT TODAY WITH PCP AND WAS REFERRED HERE TO ER TO BE SEEN. IN ED, VSS. ABDOMEN SOFT, NON-TENDER. PT CHANGED TO PT GOWN. ABLE TO GIVE URINE SAMPLE. POSITIONED COMFORTABLY IN BED WITH 2 SIDERAILS UP. ERMD MADE AWARE OF PT STATUS. PMH: HTN, 1 KIDNEY REMOVED X3YRS AGO (KIDNEY CANCER) MEDS: ATENOLOL, ENALAPRIL, OMEPRAZOLE NKA
[2020-06-30 14:36] LABS: APPEARANCE,URINE SL CLOUDY (CLEAR); BILIRUBIN,URINE NEGATIVE (NEGATIVE); BLOOD, URINE NEGATIVE (NEGATIVE); COLOR,URINE YELLOW (YELLOW); LEUKOCYTE ESTERASE ,URINE 3+ (NEGATIVE); NITRITE, URINE NEGATIVE (NEGATIVE); PH,URINE 5.5 (5.0-9.0); UGLUCOSE NEGATIVE (NEGATIVE)
[2020-06-30 14:39] LABS: RBC,URINE 0-5 /HPF (0-5); WBC,URINE 20-60 /HPF (0-5)
[2020-06-30] MEDS ORDERED: CEPH250C16 PO (14:49)
[2020-06-30 15:06] VITALS: BP 139/66
== END 2020-06-30 15:08 | disposition home or self-care (01) ==
LOC: MED 12:16
DX: N39.0 Urinary tract infection, site not specified (principal); I10 Essential (primary) hypertension; Z79.899 Other long term (current) drug therapy
CPT/HCPCS: 81001; 87086; 99283

== ENCOUNTER 2020-07-16 16:44 | Emergency (ER) | payer MEDICARE, MEDICAID ==
[~2020-07-16] VITALS: Ht 160 cm; Wt 64.4 kg
[~2020-07-16 16:44] MED LIST changes: +CEPH250C16 PO
[2020-07-16 16:58] VITALS: BP 162/95
--- NOTE | 2020-07-16 17:00 | NUR ---
69 Y/O F BIB SELF FROM HOME, PATIENT PRESENTS TO ED WITH FEVERS, FOUL ODOR WITH URINATION AND INCREASED FREQUENCY IN URINATION FOR 5 DAYS. PT STATES SHE WAS SEEN HERE RECENTLY FOR THE SAME SYMPTOMS AND WAS GIVEN ANTIBIOTICS. DENIES N/V/D; SKIN IS PINK/WARM/DRY; AAOX4 WITH EVEN AND STEADY GAIT; LUNGS CLEAR BL; HR EVEN AND REGULAR; PT DENIES ANY FEVER, CP, SOB, OR COUGH AT THIS TIME; PATIENT STATES PAIN OF 0/10 AT THIS TIME; VSS; PATIENT POSITIONED FOR COMFORT; HOB ELEVATED; BEDRAILS UP X2; BED DOWN. ER MD MADE AWARE OF PT STATUS. PMH: HTN NKA
--- NOTE | 2020-07-16 17:06 | NUR ---
Patient ambulated with steady gait to bed 4.
[2020-07-16] MEDS ORDERED: HYDROcodone/APAP 5/325 MG 1 TAB TAB PO ONE (17:40)
[2020-07-16] MEDS ORDERED: ACET-8386 PO (18:57)
[2020-07-16] MEDS ORDERED: NITR100C7 PO (18:57)
--- NOTE | 2020-07-16 19:13 | NUR ---
REPORT RECIEVED FROM JOSE LAMBERT FOR CONTINUITY OF CARE.
--- NOTE | 2020-07-16 19:37 | NUR ---
Patient discharged with v/s stable. Written and verbal after care instructions given and explained. Patient alert, oriented and verbalized understanding of instructions. Ambulatory with steady gait. All questions addressed prior to discharge. ID band removed. Patient advised to follow up with PMD. Rx of HYDROCODONE-ACETAMINOPHEN AND MACROBID given. Patient educated on indication of medication including possible reaction and side effects. Opportunity to ask questions provided and answered.
== END 2020-07-16 19:37 | disposition home or self-care (01) ==
LOC: MED 16:44
DX: N39.0 Urinary tract infection, site not specified (principal); G89.29 Other chronic pain; M25.532 Pain in left wrist; I10 Essential (primary) hypertension; Z79.899 Other long term (current) drug therapy
CPT/HCPCS: 81002; 87086; 99283

== ENCOUNTER 2020-08-04 16:09 | Emergency (ER) | payer MEDICARE, MEDICAID ==
[~2020-08-04] VITALS: Ht 152.4 cm; Wt 64.4 kg
[~2020-08-04 16:09] MED LIST changes: +ACET-8386 PO; +NITR100C7 PO; +OMEP-277 PO; -OMEP20TC11 PO
[2020-08-04 16:12] VITALS: BP 174/89
--- NOTE | 2020-08-04 16:17 | NUR ---
69 Y/O FEMALE C/O HIGH BLOOD PRESSURE SBP 170 AT HOME WITH 8/10 DESCRIBES ACHING RADIATING TO HEAD X1DAY. DENIES N/V, DENIES FEVER/CHILLS. DENIES BLURRED VISION. PMH: HTN, CHRONIC UTI'S, CERVICAL CANCER, BOTULISM, LEFT ARM FRACTURE NKA
[2020-08-04] MEDS ORDERED: NACL 0.9% 1,000 ML IV ONE (16:30)
[2020-08-04] MEDS ORDERED: MORPHINE SULFATE 4 MG/ML SYR IVP ONE (16:30)
[2020-08-04] MEDS ORDERED: ONDANSETRON 4 MG/2 ML VIAL IVP ONE (16:30)
[2020-08-04] MEDS ORDERED: diphenhydrAMINE 50 MG/ML VIAL IVP ONE (16:30)
--- NOTE | 2020-08-04 16:40 | NUR ---
PATIENT TAKEN TO CT VIA JARON
--- NOTE | 2020-08-04 16:51 | NUR ---
PATIENT BROUGHT BACK TO ROOM 1 VIA JARON
[2020-08-04] MEDS ORDERED: NAPR-54 PO (17:13)
--- NOTE | 2020-08-04 17:43 | NUR ---
Pt HOB elevated for comfort, visible equal rise and fall of chest, pt states "I feel much better after the medicine", pain rated 2/10 for headache, will continue to monitor.
[2020-08-04 18:22] VITALS: BP 155/63
== END 2020-08-04 18:23 | disposition home or self-care (01) ==
LOC: MED 16:09
DX: I10 Essential (primary) hypertension (principal); G44.209 Tension-type headache, unspecified, not intractable; Z79.899 Other long term (current) drug therapy
CPT/HCPCS: 70450; 96361; 96374; 96375; 99284; J1200; J2270; J2405; J7030

== ENCOUNTER 2020-10-04 11:24 | Emergency (ER) | payer MEDICARE, MEDICAID ==
[~2020-10-04] VITALS: Ht 160 cm; Wt 65.4 kg
[~2020-10-04 11:24] MED LIST changes: +NAPR-54 PO
[2020-10-04 11:47] VITALS: BP 187/82
--- NOTE | 2020-10-04 11:55 | NUR ---
LOBBY. PT GIVEN URINE CUP
[2020-10-04] MEDS ORDERED: NITR100C7 PO (13:59)
--- NOTE | 2020-10-04 14:21 | NUR ---
Patient discharged with v/s stable. Written and verbal after care instructions about UTI given and explained. Patient alert, oriented and verbalized understanding of instructions. Ambulatory with steady gait. All questions addressed prior to discharge. ID band removed. Patient advised to follow up with PMD. Rx of macrobid given. Patient educated on indication of medication including possible reaction and side effects. Opportunity to ask questions provided and answered.
[2020-10-04 14:22] VITALS: BP 187/82
[2020-10-04 15:51] LABS: APPEARANCE,URINE HAZY (CLEAR); BLOOD, URINE 1+ (NEGATIVE); COLOR,URINE STRAW (YELLOW); UGLUCOSE NEGATIVE (NEGATIVE)
[2020-10-04 15:52] LABS: BILIRUBIN,URINE NEGATIVE (NEGATIVE); LEUKOCYTE ESTERASE ,URINE 2+ (NEGATIVE); NITRITE, URINE NEGATIVE (NEGATIVE); WBC,URINE TOO MANY TO COUNT /HPF (0-5)
== END 2020-10-04 14:21 | disposition home or self-care (01) ==
LOC: MED 11:24
DX: N39.0 Urinary tract infection, site not specified (principal); I10 Essential (primary) hypertension; Z79.899 Other long term (current) drug therapy
CPT/HCPCS: 81001; 81025; 87086; 99283

== ENCOUNTER 2020-10-08 10:39 | Emergency (ER) | payer MEDICARE, MEDICAID ==
[~2020-10-08] VITALS: Ht 160 cm; Wt 65.3 kg
[2020-10-08 10:50] VITALS: BP 192/91
[2020-10-08] MEDS ORDERED: LABETALOL 100 MG/20 ML VIAL IVP ONE (11:10)
--- NOTE | 2020-10-08 11:10 | NUR ---
69 YEAR OLD FEMALE COMPLAINS OF HEADACHE X TODAY. IN TRIAGE PT BLOOD PRESSURE >180 SYSTOLIC, HR 71. PT STATES SHE HAS A PRESSURE HEADACHE. PT DENIES CHEST PAIN, SOB, N/V/D. PT ALERT AND AWAKE, BREATHING EVEN AND UNLABORED, SKIN WARM AND DRY. BED IN LOWEST POSITION, LOCKED, BED RAIL UPX1. PMH - HTN, CHRONIC UTI, CHOLECYSTECTOMY, ONLY LEFT KIDNEY, C SECTION ALLERGIES - NKA
--- NOTE | 2020-10-08 11:13 | NUR ---
HR 71, BP 189/92. PT HAS 8/10 THROBBING HEADACHE. ERMD AWARE OF PT STATUS
--- NOTE | 2020-10-08 11:37 | NUR ---
UNABLE TO OBTAIN IV ACCESS AFTER 2 ATTEMPTS - ANOTHER NURSE WILL ATTEMPT SOON
--- NOTE | 2020-10-08 12:30 | NUR ---
MULTIPLE ATTEMPTS MADE BY NURSES TO GET IV ACCESS THAT WERE UNSUCESSFUL. ERMD MADE AWARE
[2020-10-08] MEDS ORDERED: CLONIDINE HYDROCHLORIDE 0.1 MG TAB PO ONE (12:50)
[2020-10-08 13:27] LABS: BASOPHILS % (AUTO) 0.3 % (0.0-2.0); EOSINOPHILS % (AUTO) 0.6 % (0.0-4.0); HEMOGLOBIN 12.1 g/dL (12.0-16.0); LYMPHOCYTES # (AUTO) 1.8 K/uL (2.5-16.5); LYMPHOCYTES % (AUTO) 25.6 % (20.5-51.1); MEAN CORPUSCULAR HEMOGLOBIN 30 pg (27-31); MEAN CORPUSCULAR HGB CONC 34 g/dL (33-37); MONOCYTES # (AUTO) 0.4 K/uL (0.8-1.0); MONOCYTES % (AUTO) 5.5 % (1.7-9.3); NEUTROPHILS # (AUTO) 4.8 K/uL (1.8-7.7); PLATELET COUNT (AUTO) 226 K/uL (140-450); RED CELL DISTRIBUTION WIDTH 17.2 % (11.6-13.7)
[2020-10-08 13:40] LABS: ANION GAP 13.3 (8-16); CARBON DIOXIDE 26.6 mmol/L (21-32); CREATININE 1.6 mg/dL (0.6-1.3); POTASSIUM 3.9 mmol/L (3.5-5.1); TOTAL BILIRUBIN 0.4 mg/dL (0.0-1.0)
[2020-10-08] MEDS ORDERED: CLON0.1T16 PO (14:56)
[2020-10-08 15:12] VITALS: BP 122/63
--- NOTE | 2020-10-08 15:13 | NUR ---
Patient discharged with v/s stable. Written and verbal after care instructions given HYPERTENSION and explained. Patient alert, oriented and verbalized understanding of instructions. Ambulatory with steady gait. All questions addressed prior to discharge. ID band removed. Patient advised to follow up with PMD. Rx of CLONIDINE 0.1MG PO BID PRN MD ORDER FOR HTN given. Patient educated on indication of medication including possible reaction and side effects. Opportunity to ask questions provided and answered.
== END 2020-10-08 15:13 | disposition home or self-care (01) ==
LOC: MED 10:39
DX: I10 Essential (primary) hypertension (principal)
CPT/HCPCS: 36415; 70450; 71045; 80053; 83880; 84484; 85025; 99285

== ENCOUNTER 2021-01-02 14:18 | Emergency (ER) | payer MEDICARE, MEDICAID ==
[~2021-01-02] VITALS: Ht 160 cm; Wt 66.7 kg
[~2021-01-02 14:18] MED LIST changes: +CLON0.1T16 PO
[2021-01-02 14:41] VITALS: BP 200/124
--- NOTE | 2021-01-02 14:48 | NUR ---
PT AMBULATED TO ER BED 7
--- NOTE | 2021-01-02 15:10 | NUR ---
70 Y/O FEMALE C/O 8 HEADACHE X YESTERDAY. PT ALSO C/O DIZZINESS AND FEELING LIGHTHEADED. PT DENIES CHANGES IN VISION, N/V, SOB/CP. PT REPORTS THAT SHE STOPPED HER BP MEDS FOR X3 DAYS LAST WEEK B/C BP WAS "NORMAL" AND NOW BP IS ELEVATED. PT STATES SHE TOOK HALF THE DOSAGE OF HER BP MEDS TODAY. PT REPORTS HAVING PREVIOUS HEADACHES AND THIS FEELS SIMILAR. PT A/O X4 WITH EVEN AND UNLABORED RESPIRATIONS. PT ON [employer] PMH:HTN, ONLY 1 KIDNEY. NKDA
--- NOTE | 2021-01-02 15:11 | NUR ---
DR BERNAL AT BEDSIDE EVALUATING PT
--- NOTE | 2021-01-02 15:24 | NUR ---
70 Y/O F C/O HIGH BLOOD PRESSURE, 8/10 HEADACHE, DIZZINES SINCE YESTERDAY, BP UPPON ARRIVAL WAS 200/124. SHE ALSO CURRENTLY HAS UTI WHICH SHE TAKES ANIBIOTICS FOR THE LAST 2 WKS. HX:HTN, R SIDE KIDNEY SURGERY
--- NOTE | 2021-01-02 15:29 | NUR ---
EKG AT BEDSIDE
--- NOTE | 2021-01-02 15:45 | NUR ---
PATIENT TO CT SCAN
--- NOTE | 2021-01-02 15:57 | NUR ---
BACK FROM CT SCAN.
[2021-01-02 16:11] LABS: BASOPHILS % (AUTO) 0.2 % (0.0-2.0); EOSINOPHILS % (AUTO) 0.3 % (0.0-4.0); HEMATOCRIT 29.9 % (36-48); HEMOGLOBIN 10.3 g/dL (12.0-16.0); LYMPHOCYTES # (AUTO) 1.1 K/uL (2.5-16.5); LYMPHOCYTES % (AUTO) 13.3 % (20.5-51.1); MEAN CORPUSCULAR HEMOGLOBIN 30 pg (27-31); MEAN CORPUSCULAR HGB CONC 34 g/dL (33-37); MEAN CORPUSCULAR VOLUME 86.4 fL (80-94); MONOCYTES # (AUTO) 0.5 K/uL (0.8-1.0); MONOCYTES % (AUTO) 5.9 % (1.7-9.3); NEUTROPHILS # (AUTO) 6.5 K/uL (1.8-7.7); NEUTROPHILS % (AUTO) 80.3 % (42.2-75.2); PLATELET COUNT (AUTO) 288 K/uL (140-450); RED BLOOD CELL COUNT(AUTO) 3.46 MIL/uL (4.20-5.40); RED CELL DISTRIBUTION WIDTH 15.3 % (11.6-13.7); WHITE BLOOD COUNT (AUTO) 8.1 K/uL (4.8-10.8)
[2021-01-02 16:40] LABS: ALBUMIN 3.6 g/dL (3.4-5.0); ANION GAP 15.9 (8-16); CARBON DIOXIDE 21.7 mmol/L (21-32); CREATININE 1.5 mg/dL (0.6-1.3); POTASSIUM 3.6 mmol/L (3.5-5.1); THYROID STIMULATING HORMONE 1.33 uIU/mL (0.34-3.74); TOTAL BILIRUBIN 0.6 mg/dL (0.0-1.0)
[2021-01-02] MEDS ORDERED: LABETALOL 100 MG/20 ML VIAL IVP ONE (16:50)
[2021-01-02] MEDS ORDERED: CLONIDINE HYDROCHLORIDE 0.1 MG TAB PO ONE (17:35)
[2021-01-02 18:58] VITALS: BP 170/99
--- NOTE | 2021-01-02 19:01 | NUR ---
The patient's care was reviewed and supervised by Kizzy Mojica RN.
== END 2021-01-02 19:00 | disposition home or self-care (01) ==
LOC: MED 14:18
DX: I16.0 Hypertensive urgency (principal); R51.9 Headache, unspecified; I10 Essential (primary) hypertension; Z79.899 Other long term (current) drug therapy; Z98.890 Other specified postprocedural states
CPT/HCPCS: 36415; 70450; 80053; 84443; 84484; 85025; 93005; 99285

== ENCOUNTER 2021-04-11 00:30 | Emergency (ER) | payer MEDICARE, MEDICAID ==
[~2021-04-11] VITALS: Ht 160 cm; Wt 73.0 kg
[2021-04-11 00:36] VITALS: BP 193/90
--- NOTE | 2021-04-11 00:36 | NUR ---
70 YO/F BIBA FROM HOME W C/O L SIDED CHEST PAIN HEAVINESS APPROX 1 HOUR AGO NON RAD WHICH PT RELATES TO HER HIGH BLOOD PRESSURE IN THE 190s SYSTOLIC AND ANXIETY. PT DENIES ANY CHEST PAIN AT THIS TIME, DENIES SOB, N/V/D. PT TOOK CLONIDINE AT 0000 FOR HER BP. PT REPORTS SYMPTOMS HAVE NOW RESOLVED. PT BP 193/90 DENIES ANY BLURRY VISION, DIZZINESS HEAD ACHE. PT LAYING SUPINE IN BED LOCKED IN LOWEST POSITION W X2 SIDERAILS UP FOR SAFETY. BREATHING EVEN AND UNLABORED. NAD NOTED, WILL CONTINUE TO MONITOR. PMH:HTN, ANXIETY, 1 KIDNEY ALLERGIES:DENIES
--- NOTE | 2021-04-11 00:37 | NUR ---
PT BROUGHT TO BED 6 VIA RICHARD SALMERON
--- NOTE | 2021-04-11 01:42 | NUR ---
PT REPORTS FEELING BETTER, DENIES CHEST PAIN OR OTHER SYMPTOMS.
[2021-04-11 01:43] VITALS: BP 158/80
== END 2021-04-11 01:43 | disposition home or self-care (01) ==
LOC: MED 00:30
DX: I10 Essential (primary) hypertension (principal); R42 Dizziness and giddiness; R51.9 Headache, unspecified; F41.9 Anxiety disorder, unspecified; Z79.899 Other long term (current) drug therapy
CPT/HCPCS: 93005; 99283

== ENCOUNTER 2021-10-15 16:17 | Emergency (ER) | payer MEDICARE, MEDICAID ==
[~2021-10-15] VITALS: Ht 160 cm; Wt 69.9 kg
[2021-10-15 16:40] VITALS: BP 158/83
--- NOTE | 2021-10-15 19:38 | NUR ---
ALE Jenkins examining patient.
[2021-10-15] MEDS ORDERED: CEPH-588 PO (19:46)
[2021-10-15 20:04] VITALS: BP 138/72
== END 2021-10-15 20:04 | disposition home or self-care (01) ==
LOC: MED 16:17
DX: N39.0 Urinary tract infection, site not specified (principal); I10 Essential (primary) hypertension; Z79.899 Other long term (current) drug therapy
CPT/HCPCS: 81002; 99283

== ENCOUNTER 2022-05-06 18:41 | Emergency (ER) | payer MEDICARE, MEDICAID ==
[~2022-05-06] VITALS: Ht 160 cm; Wt 68.9 kg
[~2022-05-06 18:41] MED LIST changes: -ACET-8386 PO; +ACET-8905 PO; +CEPH-588 PO
[2022-05-06 18:57] VITALS: BP 131/59
--- NOTE | 2022-05-06 19:25 | NUR ---
Urine collected sent to lab
[2022-05-06 19:27] LABS: BASOPHILS % (AUTO) 0.5 % (0.0-2.0); EOSINOPHILS % (AUTO) 0.5 % (0.0-4.0); HEMATOCRIT 32.7 % (36-48); HEMOGLOBIN 10.9 g/dL (12.0-16.0); LYMPHOCYTES # (AUTO) 2.2 K/uL (2.5-16.5); LYMPHOCYTES % (AUTO) 27.5 % (20.5-51.1); MEAN CORPUSCULAR HEMOGLOBIN 29 pg (27-31); MEAN CORPUSCULAR HGB CONC 33 g/dL (33-37); MEAN CORPUSCULAR VOLUME 88.2 fL (80-94); MONOCYTES # (AUTO) 0.5 K/uL (0.8-1.0); MONOCYTES % (AUTO) 5.7 % (1.7-9.3); NEUTROPHILS # (AUTO) 5.3 K/uL (1.8-7.7); NEUTROPHILS % (AUTO) 65.8 % (42.2-75.2); PLATELET COUNT (AUTO) 252 K/uL (140-450); RED BLOOD CELL COUNT(AUTO) 3.71 MIL/uL (4.20-5.40); RED CELL DISTRIBUTION WIDTH 15.3 % (11.6-13.7)
[2022-05-06 19:35] LABS: APPEARANCE,URINE CLEAR (CLEAR); BILIRUBIN,URINE NEGATIVE (NEGATIVE); BLOOD, URINE TRACE-I (NEGATIVE); LEUKOCYTE ESTERASE ,URINE 1+ (NEGATIVE); NITRITE, URINE NEGATIVE (NEGATIVE); UGLUCOSE NEGATIVE (NEGATIVE)
[2022-05-06 19:52] LABS: COLOR,URINE STRAW (YELLOW)
[2022-05-06 20:05] LABS: ALBUMIN 4.3 g/dL (3.4-5.0); CARBON DIOXIDE 21.9 mmol/L (21-32); CREATININE 2.1 mg/dL (0.6-1.3); PHOSPHORUS 4.3 mg/dL (2.5-4.9); POTASSIUM 3.9 mmol/L (3.5-5.1)
[2022-05-06 20:11] LABS: RBC,URINE 0-5 /HPF (0-5); WBC,URINE 20-60 /HPF (0-5)
[2022-05-06 20:36] LABS: TOTAL BILIRUBIN 0.4 mg/dL (0.0-1.0)
== END 2022-05-06 20:44 | disposition home or self-care (01) ==
LOC: MED 18:41
DX: N17.9 Acute kidney failure, unspecified (principal); I10 Essential (primary) hypertension; Z79.899 Other long term (current) drug therapy
CPT/HCPCS: 36415; 80053; 81001; 83605; 83615; 83735; 84100; 84550; 85025; 87040; 87086; 99283

== ENCOUNTER 2022-11-01 13:38 | Emergency (ER) | payer MEDICARE, MEDICAID ==
[~2022-11-01] VITALS: Ht 160 cm; Wt 68.0 kg
[2022-11-01 14:00] VITALS: BP 139/82; PULSE 70; RESP 20; TEMP 97.7; O2SAT 98
[2022-11-01] MEDS ORDERED: NACL 0.9% 1,000 ML IV SCH (15:00)
[2022-11-01 16:21] LABS: BASOPHILS % (AUTO) 0.4 % (0.0-2.0); EOSINOPHILS % (AUTO) 0.5 % (0.0-4.0); HEMATOCRIT 31.3 % (36-48); HEMOGLOBIN 10.4 g/dL (12.0-16.0); LYMPHOCYTES # (AUTO) 2.3 K/uL (2.5-16.5); LYMPHOCYTES % (AUTO) 26.7 % (20.5-51.1); MEAN CORPUSCULAR HEMOGLOBIN 29 pg (27-31); MEAN CORPUSCULAR HGB CONC 33 g/dL (33-37); MEAN CORPUSCULAR VOLUME 87.9 fL (80-94); MONOCYTES # (AUTO) 0.5 K/uL (0.8-1.0); MONOCYTES % (AUTO) 6.2 % (1.7-9.3); NEUTROPHILS # (AUTO) 5.6 K/uL (1.8-7.7); NEUTROPHILS % (AUTO) 66.2 % (42.2-75.2); PLATELET COUNT (AUTO) 238 K/uL (140-450); RED BLOOD CELL COUNT(AUTO) 3.56 MIL/uL (4.20-5.40); RED CELL DISTRIBUTION WIDTH 16.1 % (11.6-13.7); WHITE BLOOD COUNT (AUTO) 8.5 K/uL (4.8-10.8)
[2022-11-01 16:41] LABS: APPEARANCE,URINE CLEAR (CLEAR); BILIRUBIN,URINE NEGATIVE (NEGATIVE); BLOOD, URINE TRACE-I (NEGATIVE); COLOR,URINE YELLOW (YELLOW); LEUKOCYTE ESTERASE ,URINE 3+ (NEGATIVE); NITRITE, URINE POSITIVE (NEGATIVE); PROTEIN,URINE NEGATIVE (NEGATIVE); UGLUCOSE NEGATIVE (NEGATIVE); UROBILINOGEN,URINE 0.2 EU/dL (0.2 - 1)
[2022-11-01 16:47] LABS: BACTERIA,URINE 3+ /HPF (None Seen); MUCUS,URINE 1+ /LPF (None Seen); RBC,URINE 0-5 /HPF (0-5); SQUAMOUS EPITHELIAL CELL,UR 4-10 (MOD) /LPF (0-3 (FEW)); TRICHOMONAS,URINE None Seen /HPF (None Seen); WBC,URINE TOO MANY TO COUNT /HPF (0-5); WHITE BLOOD CELL CASTS,URINE 0-3 /LPF (None Seen); YEAST,URINE None Seen /HPF (None Seen)
[2022-11-01 16:48] LABS: ANION GAP 16.3 (8-16); CARBON DIOXIDE 22.1 mmol/L (21-32); CREATININE 2.1 mg/dL (0.6-1.3); POTASSIUM 4.4 mmol/L (3.5-5.1); TOTAL BILIRUBIN 0.4 mg/dL (0.0-1.0); TOTAL PROTEIN, SERUM 8.9 g/dL (6.4-8.2)
[2022-11-01] MEDS ORDERED: HYDROcodone/APAP 5/325 MG 1 TAB TAB PO ONE (17:10)
[2022-11-01] MEDS ORDERED: cefTRIAXone 1,000 MG VIAL ONE (17:21)
[2022-11-01] MEDS ORDERED: CEPH-588 PO (18:44)
[2022-11-01 19:26] VITALS: BP 165/77; PULSE 60; RESP 17; TEMP 96.8; O2SAT 99
== END 2022-11-01 19:26 | disposition home or self-care (01) ==
LOC: MED 13:38
DX: N39.0 Urinary tract infection, site not specified (principal); N13.30 Unspecified hydronephrosis; Q60.0 Renal agenesis, unilateral; N28.9 Disorder of kidney and ureter, unspecified; I12.9 Hypertensive chronic kidney disease with stage 1 through stage 4 chronic kidney disease, or unspecified chronic kidney disease; N18.9 Chronic kidney disease, unspecified; Z98.890 Other specified postprocedural states; Z79.899 Other long term (current) drug therapy
CPT/HCPCS: 36415; 74176; 80053; 81001; 83690; 85025; 87086; 96361; 96365; 99285; J0696; J7030

== ENCOUNTER 2022-11-02 23:15 | Emergency (ER) | payer MEDICARE, MEDICAID ==
[~2022-11-02] VITALS: Ht 160 cm; Wt 68.0 kg
[2022-11-02 23:24] VITALS: BP 166/90; PULSE 81; RESP 16; TEMP 97; O2SAT 98
[2022-11-03 00:31] LABS: BASOPHILS % (AUTO) 0.3 % (0.0-2.0); EOSINOPHILS % (AUTO) 0.7 % (0.0-4.0); HEMATOCRIT 29.9 % (36-48); HEMOGLOBIN 10.1 g/dL (12.0-16.0); LYMPHOCYTES # (AUTO) 1.6 K/uL (2.5-16.5); LYMPHOCYTES % (AUTO) 25.6 % (20.5-51.1); MEAN CORPUSCULAR HEMOGLOBIN 30 pg (27-31); MEAN CORPUSCULAR HGB CONC 34 g/dL (33-37); MEAN CORPUSCULAR VOLUME 87.9 fL (80-94); MONOCYTES # (AUTO) 0.5 K/uL (0.8-1.0); MONOCYTES % (AUTO) 7.9 % (1.7-9.3); NEUTROPHILS # (AUTO) 4.1 K/uL (1.8-7.7); NEUTROPHILS % (AUTO) 65.5 % (42.2-75.2); PLATELET COUNT (AUTO) 221 K/uL (140-450); RED CELL DISTRIBUTION WIDTH 16.6 % (11.6-13.7); WHITE BLOOD COUNT (AUTO) 6.3 K/uL (4.8-10.8)
[2022-11-03] MEDS ORDERED: ACETAMINOPHEN 325 MG TAB PO ONE (00:35)
[2022-11-03 00:55] LABS: ALANINE AMINOTRANSFERASE 15 U/L (12-78); ALBUMIN 3.8 g/dL (3.4-5.0); ALKALINE PHOSPHATASE 106 U/L (50-136); ANION GAP 14.9 (8-16); ASPARTATE AMINOTRANSFERASE 14 U/L (15-37); CALCIUM 8.9 mg/dL (8.5-10.1); CARBON DIOXIDE 21.7 mmol/L (21-32); CHLORIDE 107 mmol/L (98-107); CREATININE 2.1 mg/dL (0.6-1.3); GFR ARICAN-AMERICAN 30 mL/min (>90); GFR NON ARICAN-AMERICAN 25 mL/min (>90); GLUCOSE 111 mg/dL (74-106); POTASSIUM 3.6 mmol/L (3.5-5.1); SODIUM SERUM 140 mmol/L (136-145); TOTAL BILIRUBIN 0.3 mg/dL (0.0-1.0); TOTAL PROTEIN, SERUM 8.5 g/dL (6.4-8.2); UREA NITROGEN, BLOOD 22 mg/dL (7-18)
[2022-11-03 01:46] VITALS: BP 157/68; PULSE 96; RESP 16; TEMP 97; O2SAT 98
== END 2022-11-03 01:46 | disposition home or self-care (01) ==
LOC: MED 23:15
DX: R07.89 Other chest pain (principal); I10 Essential (primary) hypertension; Z79.899 Other long term (current) drug therapy
CPT/HCPCS: 36415; 71045; 80053; 84484; 85025; 93005; 99285; Q0092